=== PATIENT | male | born 1975 | race African-American/Black ===

== ENCOUNTER 2018-02-01 21:25 | Inpatient (IN) ==
[2018-02-02 00:13] LABS: Apearance,Urine CLEAR (Clear); Bilirubin,Urine Negative (Negative); Blood, Urine Small mg/dL (Negative); Glucose,Urine (UA) 150 mg/dL (Negative); Ketones,Urine Negative (Negative); Nitrite,Urine Negative (Negative); Protein,Urine 100 MG/DL; Urine Color Straw (Yellow); Urine Specific Gravity 1.006 (1.001-1.035); Urine Urobilinogen < 2.0 EU/DL (0.2-1.0); WBC,Urine 1 /HPF (0-6)
[2018-02-02 00:15] LABS: PT Patient Result 10.6 SECS
[2018-02-02] MEDS ORDERED: ASPIRIN 325 MG TABLET PO STA (00:17)
[2018-02-02] MEDS ORDERED: ASPIRIN 325 MG TABLET ONE (00:25)
[2018-02-02 00:37] LABS: Blood Urea Nitrogen 59 MG/DL (7-18); Calcium 8.6 MG/DL (8.5-10.1); Glucose 98 MG/DL (74-106); Potassium 4.8 MMOL/L (3.5-5.1); Sodium 136 MMOL/L (136-145); Troponin I Only 0.166 NG/ML (0.00-0.045)
[2018-02-02 00:40] LABS: Basophils % 0.3 % (0.0-0.8); Eosinophils # 0.1 10*3/uL (0.0-0.87); Eosinophils % 1.1 % (0.00-10.9); Hematocrit 27.2 VOL% (42.0-52.0); Hemoglobin 9.1 GM/DL (14.0-18.0); Immature Granulocytes % 0.4 %; Immature Granulocytes Absolute 0.05 #; Mean Corpuscular HGB Conc 33.5 GM/DL (32-36); Mean Corpuscular Hemoglobin 32 PG (27-34); Mean Corpuscular Volume 94.8 FL (87-102); Mean Platelet Volume 9.9 FL (9.6-12.0); Monocytes # 0.8 10*3/uL (0.11-0.8); Monocytes % 6.5 % (1.7-12.7); Neutrophils # 8.8 10*3/uL (1.4-7.4); Neutrophils % 74.7 % (38.7-73.9); Platelet Count 274 T/CUMM (130-400); Red Blood Count 2.87 MC/CUMM (3.8-5.5); Red Cell Distribution Width 18.7 % (9.3-17.3); White Blood Count 11.8 T/CUMM (4-12)
[2018-02-02] MEDS ORDERED: LABETALOL 20 MG/4 ML SYRINGE IV STA (01:28)
[2018-02-02] MEDS ORDERED: FUROSEMIDE 40 MG/4 ML VIAL IV STA (01:36)
[2018-02-02] MEDS ORDERED: FUROSEMIDE 40 MG/4 ML VIAL ONE (01:42)
[2018-02-02] MEDS ORDERED: LABETALOL 20 MG/4 ML SYRINGE IV ONE (01:42)
[2018-02-02] MEDS ORDERED: MORPHINE 4 MG/1 ML VIAL IV PRN (03:47)
[2018-02-02] MEDS ORDERED: ACETAMINOPHEN 325 MG TABLET PO PRN (03:47)
[2018-02-02] MEDS ORDERED: NITROGLYCERIN SL 0.4 MG TABLET SL PRN (03:54)
[2018-02-02 04:48] LABS: Risk Ratio 5.08; Thyroid Stimulating Hormone 1.68 uIU/ml (0.358-3.74); VLDL CHOLESTEROL 28.8 MG/DL
[2018-02-02] MEDS: ISOSORBIDE MONONITRATE 30 MG TABLET PO SCH (08:05)
[2018-02-02] MEDS: CLOPIDOGREL 75 MG TABLET PO SCH (08:05)
[2018-02-02] MEDS: PANTOPRAZOLE 40 MG TABLET PO SCH (08:05)
[2018-02-02] MEDS: CARVEDILOL 6.25 MG TABLET PO SCH (08:05)
[2018-02-02] MEDS: ASPIRIN EC 81 MG TABLET PO SCH (08:05)
[2018-02-02] MEDS ORDERED: LABETALOL 20 MG/4 ML SYRINGE IV PRN (15:59)
[2018-02-02] MEDS ORDERED: BENZONATATE 100 MG CAPSULE PO PRN (18:03)
[2018-02-02] MEDS: ONDANSETRON 4 MG/2 ML VIAL IV PRN (18:47)
[2018-02-03 04:25] LABS: Basophils % 0.4 % (0.0-0.8); Eosinophils # 0.1 10*3/uL (0.0-0.87); Eosinophils % 1.6 % (0.00-10.9); Hematocrit 24.4 VOL% (42.0-52.0); Hemoglobin 7.9 GM/DL (14.0-18.0); Immature Granulocytes % 0.4 %; Immature Granulocytes Absolute 0.03 #; Lymphocytes # 1.9 10*3/uL (1.4-4.0); Lymphocytes % 28.2 % (21.2-54.2); Mean Corpuscular HGB Conc 32.4 GM/DL (32-36); Mean Corpuscular Hemoglobin 31 PG (27-34); Mean Corpuscular Volume 96.1 FL (87-102); Mean Platelet Volume 9.8 FL (9.6-12.0); Monocytes # 0.5 10*3/uL (0.11-0.8); Monocytes % 7.6 % (1.7-12.7); Neutrophils # 4.2 10*3/uL (1.4-7.4); Neutrophils % 61.8 % (38.7-73.9); Platelet Count 230 T/CUMM (130-400); Red Blood Count 2.54 MC/CUMM (3.8-5.5); Red Cell Distribution Width 18.6 % (9.3-17.3); White Blood Count 6.8 T/CUMM (4-12)
[2018-02-03 04:56] LABS: Calcium 8.1 MG/DL (8.5-10.1)
[2018-02-03] MEDS: ASPIRIN EC 81 MG TABLET PO SCH (09:16)
[2018-02-03] MEDS: PANTOPRAZOLE 40 MG TABLET PO SCH (09:16)
[2018-02-03] MEDS: CLOPIDOGREL 75 MG TABLET PO SCH (09:16)
[2018-02-03] MEDS: ISOSORBIDE MONONITRATE 30 MG TABLET PO SCH (09:16)
[2018-02-03] MEDS: CARVEDILOL 6.25 MG TABLET PO SCH (09:16)
[2018-02-03] MEDS: ONDANSETRON 4 MG/2 ML VIAL IV PRN (17:33)
[2018-02-04 06:38] LABS: Basophils % 0.4 % (0.0-0.8); Eosinophils # 0.2 10*3/uL (0.0-0.87); Eosinophils % 2.1 % (0.00-10.9); Hematocrit 25.4 VOL% (42.0-52.0); Hemoglobin 8.3 GM/DL (14.0-18.0); Immature Granulocytes % 0.7 %; Immature Granulocytes Absolute 0.05 #; Lymphocytes # 1.8 10*3/uL (1.4-4.0); Lymphocytes % 23.3 % (21.2-54.2); Mean Corpuscular HGB Conc 32.7 GM/DL (32-36); Mean Corpuscular Hemoglobin 31 PG (27-34); Mean Corpuscular Volume 96.2 FL (87-102); Mean Platelet Volume 9.5 FL (9.6-12.0); Monocytes # 0.7 10*3/uL (0.11-0.8); Monocytes % 9.5 % (1.7-12.7); Neutrophils # 4.8 10*3/uL (1.4-7.4); Platelet Count 220 T/CUMM (130-400); Red Blood Count 2.64 MC/CUMM (3.8-5.5); Red Cell Distribution Width 18.6 % (9.3-17.3); White Blood Count 7.6 T/CUMM (4-12)
[2018-02-04 06:59] LABS: Calcium 8.2 MG/DL (8.5-10.1); Potassium 5.1 MMOL/L (3.5-5.1)
[2018-02-04] MEDS: PANTOPRAZOLE 40 MG TABLET PO SCH (09:30)
[2018-02-04] MEDS: ISOSORBIDE MONONITRATE 30 MG TABLET PO SCH (09:30)
[2018-02-04] MEDS: ASPIRIN EC 81 MG TABLET PO SCH (09:31)
[2018-02-04] MEDS: CARVEDILOL 6.25 MG TABLET PO SCH (09:31)
[2018-02-04] MEDS: CLOPIDOGREL 75 MG TABLET PO SCH (14:06)
[2018-02-04 16:10] VITALS: BP 137/84
[2018-02-04] MEDS ORDERED: DOCUSATE SODIUM 100 MG CAPSULE PO SCH (21:00)
== END 2018-02-04 16:05 | disposition home or self-care (01) | DRG 291 ==
LOC: N.ED 21:25 → N.EDINP 02-02 03:45 → N.ICU 02-02 04:30 → N.5E 02-03 18:14
PROVIDERS: ADMIT Internal Medicine; ATTEND Internal Medicine

== ENCOUNTER 2018-12-27 01:36 | Observation (INO) ==
[2018-12-27] MEDS ORDERED: MORPHINE 4 MG/1 ML VIAL IV STA (02:28)
[2018-12-27] MEDS ORDERED: ONDANSETRON 4 MG/2 ML VIAL IV STA (02:28)
[2018-12-27 02:34] LABS: Basophils % 0.4 % (0.0-0.8); Eosinophils # 0.1 10*3/uL (0.0-0.87); Eosinophils % 1.5 % (0.00-10.9); Hematocrit 29.7 VOL% (42.0-52.0); Hemoglobin 9.9 GM/DL (14.0-18.0); Immature Granulocytes % 0.5 %; Immature Granulocytes Absolute 0.04 #; Lymphocytes # 2.2 10*3/uL (1.4-4.0); Lymphocytes % 26.6 % (21.2-54.2); Mean Corpuscular HGB Conc 33.3 GM/DL (32-36); Mean Corpuscular Hemoglobin 31 PG (27-34); Mean Corpuscular Volume 93.1 FL (87-102); Mean Platelet Volume 9.8 FL (9.6-12.0); Monocytes # 0.6 10*3/uL (0.11-0.8); Monocytes % 7.8 % (1.7-12.7); Neutrophils # 5.1 10*3/uL (1.4-7.4); Neutrophils % 63.2 % (38.7-73.9); Platelet Count 240 T/CUMM (130-400); Red Blood Count 3.19 MC/CUMM (3.8-5.5); Red Cell Distribution Width 15.9 % (9.3-17.3); White Blood Count 8.1 T/CUMM (4-12)
[2018-12-27 02:48] LABS: Albumin 3.8 G/DL (3.4-5.0); Bilirubin,Total 0.4 MG/DL (0.2-1.0); Calcium 9.2 MG/DL (8.5-10.1); Osmolality,Calculated 281.1 MOS/KG (273-304); Potassium 4.1 MMOL/L (3.5-5.1); Total Protein 8.3 G/DL (6.4-8.3)
[2018-12-27] MEDS ORDERED: hydrALAZINE 20 MG/1 ML VIAL IV STA (03:39)
[2018-12-27] MEDS ORDERED: LABETALOL 20 MG/4 ML SYRINGE IV ONE (05:29)
[2018-12-27] MEDS ORDERED: LABETALOL 20 MG/4 ML SYRINGE IV STA (05:32)
[2018-12-27] MEDS ORDERED: guaiFENesin/DM ER 600-30 MG TABLET PO PRN (06:02)
[2018-12-27] MEDS ORDERED: ONDANSETRON 4 MG/2 ML VIAL IV PRN (06:02)
[2018-12-27] MEDS ORDERED: MAGNESIUM SULF RIDER 4 GM in PREMIX 1 EACH IV PRN (06:02)
[2018-12-27] MEDS ORDERED: ZALEPLON 5 MG CAPSULE PO PRN (06:02)
[2018-12-27] MEDS ORDERED: BISACODYL 5 MG TABLET PO PRN (06:02)
[2018-12-27] MEDS ORDERED: POTASSIUM CHLORIDE 20 MEQ TABLET PO PRN (06:02)
[2018-12-27] MEDS ORDERED: MORPHINE 4 MG/1 ML VIAL IV PRN (06:02)
[2018-12-27] MEDS ORDERED: MAGNESIUM SULF RIDER 2 GM in PREMIX 1 EACH IV PRN (06:02)
[2018-12-27] MEDS ORDERED: ACETAMINOPHEN 325 MG TABLET PO PRN (06:02)
[2018-12-27] MEDS ORDERED: NICOTINE 21 MG/24 HR PATCH TRANSDERM PRN (06:02)
[2018-12-27] MEDS ORDERED: diphenhydrAMINE CAP 25 MG CAPSULE PO PRN (06:02)
[2018-12-27 08:53] LABS: Risk Ratio 4.89; Thyroid Stimulating Hormone 1.94 uIU/ml (0.358-3.74); VLDL CHOLESTEROL 24.6 MG/DL
[2018-12-27] MEDS: PANTOPRAZOLE 40 MG TABLET PO SCH (09:15)
[2018-12-27] MEDS ORDERED: ALBUTEROL 2.5 MG/3 ML NEB RESP TX PRN (10:00)
[2018-12-27] MEDS ORDERED: CARVEDILOL 3.125 MG TABLET ONE (11:33)
[2018-12-27] MEDS ORDERED: ASPIRIN CHEW 81 MG TABLET PO ONE (11:34)
[2018-12-27] MEDS: ASPIRIN EC 81 MG TABLET PO SCH (11:57)
[2018-12-27] MEDS: hydrALAZINE 25 MG TABLET PO SCH ×2 (11:57→21:06)
[2018-12-27] MEDS: CARVEDILOL 6.25 MG TABLET PO SCH ×2 (11:58→21:06)
[2018-12-27] MEDS: ISOSORBIDE MONONITRATE 30 MG TABLET PO SCH (11:59)
[2018-12-27] MEDS: CLOPIDOGREL 75 MG TABLET PO SCH (11:59)
[2018-12-27] MEDS ORDERED: EPOETIN ALFA 2,000 UNIT/1 ML VIAL IV PRN (12:36)
[2018-12-28 05:42] LABS: Basophils % 0.5 % (0.0-0.8); Eosinophils # 0.1 10*3/uL (0.0-0.87); Eosinophils % 2.3 % (0.00-10.9); Hematocrit 27.6 VOL% (42.0-52.0); Hemoglobin 9.3 GM/DL (14.0-18.0); Immature Granulocytes % 0.4 %; Immature Granulocytes Absolute 0.02 #; Lymphocytes # 1.5 10*3/uL (1.4-4.0); Lymphocytes % 26.1 % (21.2-54.2); Mean Corpuscular HGB Conc 33.7 GM/DL (32-36); Mean Corpuscular Hemoglobin 32 PG (27-34); Mean Corpuscular Volume 94.2 FL (87-102); Monocytes # 0.5 10*3/uL (0.11-0.8); Monocytes % 8.8 % (1.7-12.7); Neutrophils # 3.5 10*3/uL (1.4-7.4); Neutrophils % 61.9 % (38.7-73.9); Platelet Count 204 T/CUMM (130-400); Red Blood Count 2.93 MC/CUMM (3.8-5.5); White Blood Count 5.7 T/CUMM (4-12)
[2018-12-28 05:44] LABS: Calcium 8.9 MG/DL (8.5-10.1); Potassium 3.9 MMOL/L (3.5-5.1)
[2018-12-28] MEDS: hydrALAZINE 25 MG TABLET PO SCH (14:44)
[2018-12-28] MEDS: CARVEDILOL 6.25 MG TABLET PO SCH (14:44)
[2018-12-28] MEDS: PANTOPRAZOLE 40 MG TABLET PO SCH (16:21)
[2018-12-28] MEDS: ASPIRIN EC 81 MG TABLET PO SCH (16:22)
[2018-12-28] MEDS: ISOSORBIDE MONONITRATE 30 MG TABLET PO SCH (16:22)
[2018-12-28] MEDS: CLOPIDOGREL 75 MG TABLET PO SCH (16:22)
[2018-12-28 16:46] VITALS: BP 148/85
== END 2018-12-28 16:46 | disposition home or self-care (01) ==
LOC: SUATTDRO → N.ED 01:36 → N.EDINP 01:36 → SUATTDRO 06:02 → N.EDINP 12:35 → N.5E 16:07
PROVIDERS: ADMIT Hospitalist; ATTEND Internal Medicine

== ENCOUNTER 2019-04-16 19:28 | Inpatient (IN) ==
[2019-04-16] MEDS ORDERED: LORazepam 2 MG/1 ML VIAL IV STA (20:04)
[2019-04-16] MEDS ORDERED: methylPREDNISolone SOD SUC 125 MG/2 ML VIAL IV STA (20:04)
[2019-04-16] MEDS ORDERED: ONDANSETRON 4 MG/2 ML VIAL IV STA (20:04)
[2019-04-16] MEDS ORDERED: FAMOTIDINE 20 MG/2 ML VIAL IV STA (20:04)
[2019-04-16] MEDS ORDERED: diphenhydrAMINE 50 MG/1 ML VIAL IV STA (20:04)
[2019-04-16] MEDS ORDERED: LEVOFLOXACIN INJ 750 MG in PREMIX 1 EACH IV STA (20:10)
[2019-04-16] MEDS: ALBUTEROL 2.5 MG/3 ML NEB RESP TX SCH ×3 (20:14→21:34)
[2019-04-16 21:22] LABS: Basophils % 0.1 % (0.0-0.8); Eosinophils # 0.1 10*3/uL (0.0-0.87); Eosinophils % 1.1 % (0.00-10.9); Hematocrit 38.9 VOL% (42.0-52.0); Hemoglobin 12.5 GM/DL (14.0-18.0); Immature Granulocytes % 0.5 %; Immature Granulocytes Absolute 0.05 #; Lymphocytes # 0.5 10*3/uL (1.4-4.0); Lymphocytes % 4.8 % (21.2-54.2); Mean Corpuscular HGB Conc 32.1 GM/DL (32-36); Mean Corpuscular Volume 93.7 FL (87-102); Mean Platelet Volume 9.5 FL (9.6-12.0); Monocytes % 1.5 % (1.7-12.7); Platelet Count 183 T/CUMM (130-400); Red Blood Count 4.15 MC/CUMM (3.8-5.5); Red Cell Distribution Width 15.9 % (9.3-17.3); White Blood Count 9.8 T/CUMM (4-12)
[2019-04-16 21:30] LABS: PT Patient Result 10.8 SECS
[2019-04-16 21:41] LABS: Alanine Aminotransferase 17 U/L (16-61); Alkaline Phosphatase 62 U/L (45-117); Aspartate Amino Transferase 18 U/L (0-37); Blood Urea Nitrogen 28 MG/DL (7-18); Calcium 9.2 MG/DL (8.5-10.1); Glucose 97 MG/DL (74-106); Osmolality,Calculated 275.1 MOS/KG (273-304); Total Protein 9.5 G/DL (6.4-8.3)
[2019-04-16] MEDS ORDERED: VANCOMYCIN INJ 1,000 MG in SODIUM CHLORIDE 0.9% 250 ML IV STA (22:10)
[2019-04-16] MEDS ORDERED: VANCOMYCIN INJ 1,250 MG in SODIUM CHLORIDE 0.9% 250 ML IV STA (22:20)
[2019-04-16] MEDS ORDERED: ALBUTEROL 2.5 MG/3 ML NEB RESP TX PRN (22:34)
[2019-04-16] MEDS ORDERED: NITROGLYCERIN SL 0.4 MG TABLET SL PRN (22:34)
[2019-04-16] MEDS ORDERED: ASPIRIN EC 81 MG TABLET PO PRN (22:34)
[2019-04-16] MEDS ORDERED: CALCITRIOL 0.25 MCG CAPSULE PO SCH (23:00)
[2019-04-16 23:01] LABS: Band Neutrophils 3 % (0-10); Eosinophils 1 % (0-10); Lymphocytes 3 % (20-55); Macrocytosis Slight; Platelet Estimate Normal; Segmented Neutrophils 92 % (50-85); Total Cells Counted 100
[2019-04-16 23:02] LABS: Anisocytosis 1+; Polychromasia Few
[2019-04-17] MEDS ORDERED: ONDANSETRON 4 MG/2 ML VIAL IV PRN (02:13)
[2019-04-17] MEDS ORDERED: VANCOMYCIN INJ 1,250 MG in SODIUM CHLORIDE 0.9% 250 ML IV PRN (02:13)
[2019-04-17] MEDS: ATORVASTATIN 40 MG TABLET PO SCH ×2 (03:27→20:47)
[2019-04-17] MEDS: CLINDAMYCIN 300 MG CAPSULE PO SCH ×3 (03:27→17:22)
[2019-04-17] MEDS: CARVEDILOL 12.5 MG TABLET PO SCH ×3 (03:31→18:05)
[2019-04-17 05:48] LABS: Basophils # 0.1 10*3/uL (0.0-0.2); Basophils % 0.2 % (0.0-0.8); Hematocrit 34.4 VOL% (42.0-52.0); Hemoglobin 11.3 GM/DL (14.0-18.0); Immature Granulocytes % 0.9 %; Lymphocytes # 0.2 10*3/uL (1.4-4.0); Mean Corpuscular HGB Conc 32.8 GM/DL (32-36); Mean Platelet Volume 10.2 FL (9.6-12.0); Monocytes % 0.8 % (1.7-12.7); Neutrophils % 97.1 % (38.7-73.9); Platelet Count 174 T/CUMM (130-400); Red Blood Count 3.62 MC/CUMM (3.8-5.5); Red Cell Distribution Width 15.7 % (9.3-17.3); White Blood Count 21.7 T/CUMM (4-12)
[2019-04-17 06:05] LABS: Calcium 9.2 MG/DL (8.5-10.1); Osmolality,Calculated 279.2 MOS/KG (273-304)
[2019-04-17 06:25] LABS: Band Neutrophils 7 % (0-10); Lymphocytes 1 % (20-55); Segmented Neutrophils 91 % (50-85); Total Cells Counted 100
[2019-04-17 06:26] LABS: Platelet Estimate Normal
[2019-04-17] MEDS ORDERED: SODIUM CHLORIDE 0.9% 500 ML IV ONE (07:59)
[2019-04-17] MEDS ORDERED: SODIUM POLYSTYRENE SULFATE 15 GM/60 ML BOTTLE PO STA (08:00)
[2019-04-17] MEDS: SEVELAMER CARBONATE 800 MG TABLET PO SCH ×3 (10:25→17:18)
[2019-04-17] MEDS: CLOPIDOGREL 75 MG TABLET PO SCH (10:25)
[2019-04-17] MEDS: HEPARIN 5,000 UNIT/1 ML VIAL SUBCUT SCH ×2 (17:20→20:47)
[2019-04-17 19:34] LABS: Apearance,Urine CLEAR (Clear); Bilirubin,Urine Negative (Negative); Blood, Urine Small mg/dL (Negative); Glucose,Urine (UA) 150 mg/dL (Negative); Ketones,Urine Negative (Negative); Nitrite,Urine Negative (Negative); Protein,Urine 100 MG/DL; RBC,Urine 2 /HPF (0-4); Urine Color Straw (Yellow); Urine Specific Gravity 1.005 (1.001-1.035); Urine Urobilinogen < 2.0 EU/DL (0.2-1.0); WBC,Urine 1 /HPF (0-6)
[2019-04-17] MEDS ORDERED: diphenhydrAMINE 50 MG/1 ML VIAL IV ONE (21:27)
[2019-04-18 04:57] LABS: Basophils % 0.1 % (0.0-0.8); Eosinophils # 0.4 10*3/uL (0.0-0.87); Eosinophils % 2.5 % (0.00-10.9); Hematocrit 31.9 VOL% (42.0-52.0); Hemoglobin 10.3 GM/DL (14.0-18.0); Immature Granulocytes % 0.7 %; Lymphocytes # 0.4 10*3/uL (1.4-4.0); Lymphocytes % 2.9 % (21.2-54.2); Mean Corpuscular HGB Conc 32.3 GM/DL (32-36); Mean Corpuscular Volume 93.5 FL (87-102); Mean Platelet Volume 10.4 FL (9.6-12.0); Monocytes % 1.6 % (1.7-12.7); Neutrophils % 92.2 % (38.7-73.9); Platelet Count 152 T/CUMM (130-400); Red Blood Count 3.41 MC/CUMM (3.8-5.5); Red Cell Distribution Width 15.8 % (9.3-17.3); White Blood Count 14.5 T/CUMM (4-12)
[2019-04-18] MEDS: ACETAMINOPHEN 325 MG TABLET PO PRN ×3 (05:16→21:27)
[2019-04-18] MEDS: HEPARIN 5,000 UNIT/1 ML VIAL SUBCUT SCH ×4 (05:16→21:27)
[2019-04-18 05:18] LABS: Calcium 8.9 MG/DL (8.5-10.1); Osmolality,Calculated 282.5 MOS/KG (273-304)
[2019-04-18 05:27] LABS: Anisocytosis 1+; Band Neutrophils 1 % (0-10); Eosinophils 2 % (0-10); Lymphocytes 2 % (20-55); Platelet Estimate Adequate; Segmented Neutrophils 95 % (50-85); Total Cells Counted 100
[2019-04-18] MEDS: CLOPIDOGREL 75 MG TABLET PO SCH (08:25)
[2019-04-18] MEDS: SEVELAMER CARBONATE 800 MG TABLET PO SCH ×3 (08:26→16:47)
[2019-04-18] MEDS: CARVEDILOL 12.5 MG TABLET PO SCH ×2 (08:26→16:47)
[2019-04-18] MEDS ORDERED: SODIUM POLYSTYRENE SULFATE 15 GM/60 ML BOTTLE PO STA (10:49)
[2019-04-18] MEDS: diphenhydrAMINE 50 MG/1 ML VIAL IV SCH ×3 (11:29→23:48)
[2019-04-18] MEDS: LEVOFLOXACIN INJ 500 MG in PREMIX 1 EACH IV SCH (13:04)
[2019-04-18] MEDS ORDERED: ETELCALCETIDE IV SCH (14:00)
[2019-04-18] MEDS: ATORVASTATIN 40 MG TABLET PO SCH (21:27)
[2019-04-19] MEDS: diphenhydrAMINE 50 MG/1 ML VIAL IV SCH ×3 (05:14→18:42)
[2019-04-19] MEDS: HEPARIN 5,000 UNIT/1 ML VIAL SUBCUT SCH ×3 (05:14→21:14)
[2019-04-19 05:48] LABS: Eosinophils # 0.5 10*3/uL (0.0-0.87); Eosinophils % 5.2 % (0.00-10.9); Hemoglobin 10.1 GM/DL (14.0-18.0); Immature Granulocytes % 0.6 %; Immature Granulocytes Absolute 0.06 #; Lymphocytes # 0.5 10*3/uL (1.4-4.0); Lymphocytes % 4.7 % (21.2-54.2); Mean Corpuscular HGB Conc 33.7 GM/DL (32-36); Mean Platelet Volume 10.8 FL (9.6-12.0); Monocytes % 2.1 % (1.7-12.7); Neutrophils % 87.4 % (38.7-73.9); Platelet Count 148 T/CUMM (130-400); Red Blood Count 3.26 MC/CUMM (3.8-5.5); Red Cell Distribution Width 15.8 % (9.3-17.3); White Blood Count 9.9 T/CUMM (4-12)
[2019-04-19 06:04] LABS: Calcium 9.5 MG/DL (8.5-10.1); Osmolality,Calculated 288.8 MOS/KG (273-304)
[2019-04-19 06:16] LABS: Anisocytosis 1+; Band Neutrophils 2 % (0-10); Eosinophils 6 % (0-10); Lymphocytes 4 % (20-55); Segmented Neutrophils 87 % (50-85); Total Cells Counted 100
[2019-04-19 06:17] LABS: Platelet Estimate Adequate
[2019-04-19] MEDS: ACETAMINOPHEN 325 MG TABLET PO PRN ×2 (06:32→15:22)
[2019-04-19] MEDS: CARVEDILOL 12.5 MG TABLET PO SCH ×2 (08:02→18:27)
[2019-04-19] MEDS: CLOPIDOGREL 75 MG TABLET PO SCH (08:03)
[2019-04-19] MEDS: SEVELAMER CARBONATE 800 MG TABLET PO SCH ×3 (08:03→17:25)
[2019-04-19] MEDS ORDERED: VANCOMYCIN INJ 500 MG in SODIUM CHLORIDE 0.9% 100 ML IV PRN (12:49)
[2019-04-19] MEDS ORDERED: methylPREDNISolone SOD SUC 125 MG/2 ML VIAL IV ONE (17:00)
[2019-04-19] MEDS ORDERED: VANCOMYCIN INJ 500 MG in SODIUM CHLORIDE 0.9% 100 ML IV ONE (17:00)
[2019-04-19] MEDS ORDERED: IBUPROFEN 800 MG TABLET PO ONE (17:11)
[2019-04-19] MEDS: CALCITRIOL 0.25 MCG CAPSULE PO SCH (21:14)
[2019-04-19] MEDS: ATORVASTATIN 40 MG TABLET PO SCH (21:14)
[2019-04-20 05:05] LABS: Basophils % 0.1 % (0.0-0.8); Eosinophils % 0.1 % (0.00-10.9); Hematocrit 29.4 VOL% (42.0-52.0); Hemoglobin 9.7 GM/DL (14.0-18.0); Immature Granulocytes % 0.5 %; Immature Granulocytes Absolute 0.04 #; Lymphocytes # 0.5 10*3/uL (1.4-4.0); Lymphocytes % 5.7 % (21.2-54.2); Mean Platelet Volume 10.7 FL (9.6-12.0); Monocytes % 1.3 % (1.7-12.7); Neutrophils % 92.3 % (38.7-73.9); Platelet Count 123 T/CUMM (130-400); Red Blood Count 3.16 MC/CUMM (3.8-5.5); Red Cell Distribution Width 15.7 % (9.3-17.3); White Blood Count 7.9 T/CUMM (4-12)
[2019-04-20 05:32] LABS: Band Neutrophils 2 % (0-10); Hypochromasia 1+; Lymphocytes 5 % (20-55); Platelet Estimate Adequate; Segmented Neutrophils 92 % (50-85); Total Cells Counted 100
[2019-04-20] MEDS: HEPARIN 5,000 UNIT/1 ML VIAL SUBCUT SCH ×3 (05:36→21:37)
[2019-04-20 05:42] LABS: Calcium 8.7 MG/DL (8.5-10.1); Osmolality,Calculated 281.7 MOS/KG (273-304)
[2019-04-20] MEDS: SEVELAMER CARBONATE 800 MG TABLET PO SCH ×3 (08:49→16:44)
[2019-04-20] MEDS: CARVEDILOL 12.5 MG TABLET PO SCH ×2 (08:50→16:43)
[2019-04-20] MEDS ORDERED: diphenhydrAMINE 50 MG/1 ML VIAL IV ONE (14:18)
[2019-04-20] MEDS: LEVOFLOXACIN INJ 500 MG in PREMIX 1 EACH IV SCH (19:10)
[2019-04-20] MEDS: ATORVASTATIN 40 MG TABLET PO SCH (21:36)
[2019-04-21] MEDS: HEPARIN 5,000 UNIT/1 ML VIAL SUBCUT SCH ×3 (04:33→22:08)
[2019-04-21 04:52] LABS: Basophils % 0.2 % (0.0-0.8); Eosinophils # 0.2 10*3/uL (0.0-0.87); Eosinophils % 1.9 % (0.00-10.9); Hematocrit 29.2 VOL% (42.0-52.0); Hemoglobin 9.8 GM/DL (14.0-18.0); Immature Granulocytes % 0.6 %; Immature Granulocytes Absolute 0.07 #; Lymphocytes # 1.2 10*3/uL (1.4-4.0); Lymphocytes % 10.7 % (21.2-54.2); Mean Corpuscular HGB Conc 33.6 GM/DL (32-36); Mean Corpuscular Volume 92.1 FL (87-102); Mean Platelet Volume 10.9 FL (9.6-12.0); Monocytes % 7.1 % (1.7-12.7); Neutrophils % 79.5 % (38.7-73.9); Platelet Count 152 T/CUMM (130-400); Red Blood Count 3.17 MC/CUMM (3.8-5.5); Red Cell Distribution Width 15.7 % (9.3-17.3); White Blood Count 11.2 T/CUMM (4-12)
[2019-04-21 05:19] LABS: Calcium 9.1 MG/DL (8.5-10.1); Osmolality,Calculated 291.2 MOS/KG (273-304)
[2019-04-21] MEDS: SEVELAMER CARBONATE 800 MG TABLET PO SCH ×3 (10:25→17:28)
[2019-04-21] MEDS: CARVEDILOL 12.5 MG TABLET PO SCH ×2 (12:46→17:28)
[2019-04-21] MEDS: CALCITRIOL 0.25 MCG CAPSULE PO SCH (12:46)
[2019-04-21] MEDS ORDERED: LEVOFLOXACIN INJ 250 MG in PREMIX 1 EACH IV SCH (15:00)
[2019-04-21] MEDS: diphenhydrAMINE 50 MG/1 ML VIAL IV SCH (16:13)
[2019-04-21] MEDS: ATORVASTATIN 40 MG TABLET PO SCH (22:08)
[2019-04-21] MEDS: CHLORHEXIDINE 0.12% ORAL RINSE 60 ML BOTTLE SWISH/SPIT SCH (22:08)
[2019-04-22 04:35] LABS: Basophils % 0.1 % (0.0-0.8); Eosinophils # 0.6 10*3/uL (0.0-0.87); Eosinophils % 7.6 % (0.00-10.9); Hemoglobin 9.7 GM/DL (14.0-18.0); Immature Granulocytes % 1.3 %; Lymphocytes # 2.1 10*3/uL (1.4-4.0); Lymphocytes % 26.5 % (21.2-54.2); Mean Corpuscular HGB Conc 33.4 GM/DL (32-36); Mean Corpuscular Volume 91.8 FL (87-102); Mean Platelet Volume 10.3 FL (9.6-12.0); Monocytes % 10.3 % (1.7-12.7); Neutrophils % 54.2 % (38.7-73.9); Platelet Count 165 T/CUMM (130-400); Red Blood Count 3.16 MC/CUMM (3.8-5.5); Red Cell Distribution Width 15.9 % (9.3-17.3); White Blood Count 7.7 T/CUMM (4-12)
[2019-04-22 04:45] LABS: Calcium 8.8 MG/DL (8.5-10.1)
[2019-04-22 05:21] LABS: Band Neutrophils 5 % (0-10); Eosinophils 9 % (0-10); Hypochromasia 2+; Lymphocytes 28 % (20-55); Platelet Estimate Normal; Segmented Neutrophils 45 % (50-85); Total Cells Counted 100
[2019-04-22] MEDS: CHLORHEXIDINE 0.12% ORAL RINSE 60 ML BOTTLE SWISH/SPIT SCH (08:00)
[2019-04-22] MEDS: SEVELAMER CARBONATE 800 MG TABLET PO SCH ×3 (08:00→16:22)
[2019-04-22] MEDS: CARVEDILOL 12.5 MG TABLET PO SCH ×3 (08:00→16:21)
[2019-04-22] MEDS ORDERED: LIDOCAINE 1%/EPI INJ 20 ML VIAL ONE (13:18)
[2019-04-22] MEDS ORDERED: CHLORHEXIDINE 0.12% ORAL RINSE 60 ML BOTTLE SWISH/SPIT ONE (13:18)
[2019-04-22] MEDS ORDERED: SUGAMMADEX 200 MG/2 ML VIAL IV ONE (14:15)
[2019-04-22] MEDS ORDERED: PROPOFOL 200 MG/20 ML VIAL IV ONE (14:48)
[2019-04-22] MEDS ORDERED: fentaNYL 100 MCG/2 ML VIAL ONE (14:48)
[2019-04-22] MEDS ORDERED: DESFLURANE 1 UNIT/15 MINUTE INH ONE (14:48)
[2019-04-22] MEDS ORDERED: DEXAMETHASONE 4 MG/1 ML VIAL ONE (14:48)
[2019-04-22] MEDS ORDERED: ONDANSETRON 4 MG/2 ML VIAL ONE (14:48)
[2019-04-22] MEDS ORDERED: ROCURONIUM 100 MG/10 ML VIAL IV ONE (14:48)
[2019-04-22 15:29] VITALS: BP 146/80
[2019-04-23] MEDS ORDERED: EPOETIN BETA METHOXY PEG IV SCH (14:00)
== END 2019-04-22 17:19 | disposition home or self-care (01) | DRG 157 ==
LOC: N.ED 19:28 → N.EDINP 19:28 → SUATTDRO 22:14 → N.5E 04-17 02:15 → SUATTDRO 04-18 10:15
PROVIDERS: ADMIT Internal Medicine; ATTEND Internal Medicine Cardiovascular Disease

== ENCOUNTER 2019-07-02 22:54 | Observation (INO) ==
[2019-07-02] MEDS ORDERED: NITROGLYCERIN SL 0.4 MG TABLET SL ONE (23:31)
[2019-07-02] MEDS ORDERED: NITROGLYCERIN SL 0.4 MG TABLET SL STA (23:40)
[2019-07-02 23:49] LABS: Basophils % 0.4 % (0.0-0.8); Eosinophils # 0.1 10*3/uL (0.0-0.87); Eosinophils % 1.8 % (0.00-10.9); Immature Granulocytes % 0.3 %; Immature Granulocytes Absolute 0.02 #; Lymphocytes # 1.9 10*3/uL (1.4-4.0); Mean Corpuscular HGB Conc 33.3 GM/DL (32-36); Mean Corpuscular Volume 95.8 FL (87-102); Mean Platelet Volume 9.8 FL (9.6-12.0); Monocytes % 7.7 % (1.7-12.7); Neutrophils % 61.8 % (38.7-73.9); Platelet Count 181 T/CUMM (130-400); Red Blood Count 3.13 MC/CUMM (3.8-5.5); White Blood Count 6.7 T/CUMM (4-12)
[2019-07-02 23:58] LABS: PT Patient Result 10.7 SECS (9.6-12.2); Partial Thromboplastin Time 27.6 SECS (20.8-36.0)
[2019-07-03 00:06] LABS: Albumin 3.6 G/DL (3.4-5.0); Bilirubin,Total 0.4 MG/DL (0.2-1.0); Calcium 9.2 MG/DL (8.5-10.1); Osmolality,Calculated 281.4 MOS/KG (273-304); Total Protein 7.9 G/DL (6.4-8.3)
[2019-07-03] MEDS ORDERED: NITROGLYCERIN SL 0.4 MG TABLET SL STA (01:07)
[2019-07-03] MEDS ORDERED: MORPHINE 4 MG/1 ML VIAL IV STA (01:07)
[2019-07-03] MEDS ORDERED: ONDANSETRON 4 MG/2 ML VIAL IV ONE (01:07)
[2019-07-03] MEDS ORDERED: ONDANSETRON 4 MG/2 ML VIAL IV PRN (02:12)
[2019-07-03] MEDS ORDERED: NICOTINE 21 MG/24 HR PATCH TRANSDERM PRN (02:12)
[2019-07-03] MEDS ORDERED: ACETAMINOPHEN 325 MG TABLET PO PRN (02:12)
[2019-07-03] MEDS ORDERED: NITROGLYCERIN SL 0.4 MG TABLET SL PRN ×2 (02:12→07:14)
[2019-07-03 02:49] LABS: Risk Ratio 4.25; VLDL CHOLESTEROL 23.2 MG/DL
[2019-07-03] MEDS ORDERED: ASPIRIN EC 81 MG TABLET PO PRN (07:14)
[2019-07-03] MEDS ORDERED: ETELCALCETIDE IV SCH (07:15)
[2019-07-03] MEDS ORDERED: EPOETIN BETA METHOXY PEG IV SCH (07:15)
[2019-07-03] MEDS: ASPIRIN EC 325 MG TABLET PO SCH (08:53)
[2019-07-03] MEDS: SEVELAMER CARBONATE 800 MG TABLET PO SCH ×3 (08:53→17:45)
[2019-07-03] MEDS: CLOPIDOGREL 75 MG TABLET PO SCH (08:53)
[2019-07-03] MEDS: PANTOPRAZOLE 40 MG TABLET PO SCH (08:53)
[2019-07-03] MEDS ORDERED: CARVEDILOL 12.5 MG TABLET PO SCH (09:00)
[2019-07-03 09:43] LABS: Apearance,Urine CLEAR (Clear); Bilirubin,Urine Negative (Negative); Blood, Urine Large mg/dL (Negative); Glucose,Urine (UA) 150 mg/dL (Negative); Ketones,Urine Negative (Negative); Mucus,Urine Occasional /LPF (Occasional); Nitrite,Urine Negative (Negative); Protein,Urine 100 MG/DL; RBC,Urine 99 /HPF (0-4); Urine Color Colorless (Yellow); Urine Specific Gravity 1.005 (1.001-1.035); Urine Urobilinogen < 2.0 EU/DL (0.2-1.0); WBC,Urine 1 /HPF (0-6)
[2019-07-03] MEDS ORDERED: CARVEDILOL 12.5 MG TABLET PO ONE (16:54)
[2019-07-03] MEDS ORDERED: ATORVASTATIN 40 MG TABLET PO SCH (21:00)
[2019-07-03] MEDS: CARVEDILOL 25 MG TABLET PO SCH (21:24)
[2019-07-03] MEDS: MORPHINE 4 MG/1 ML VIAL IV PRN (21:25)
[2019-07-04] MEDS: MORPHINE 4 MG/1 ML VIAL IV PRN (00:58)
[2019-07-04] MEDS: SEVELAMER CARBONATE 800 MG TABLET PO SCH (07:58)
[2019-07-04] MEDS: CARVEDILOL 25 MG TABLET PO SCH (07:59)
[2019-07-04] MEDS: PANTOPRAZOLE 40 MG TABLET PO SCH (07:59)
[2019-07-04] MEDS: ASPIRIN EC 325 MG TABLET PO SCH (07:59)
[2019-07-04] MEDS: CLOPIDOGREL 75 MG TABLET PO SCH (07:59)
[2019-07-04 10:47] VITALS: BP 148/89
[2019-07-05] MEDS ORDERED: CALCITRIOL 0.25 MCG CAPSULE PO SCH (07:14)
== END 2019-07-04 11:03 | disposition home or self-care (01) ==
LOC: N.EDINP 22:54 → N.ED 22:54 → SUATTDRO 07-03 02:12 → N.TELEN 07-03 02:37
PROVIDERS: ATTEND Internal Medicine

== ENCOUNTER 2019-08-10 21:17 | Observation (INO) ==
[2019-08-10] MEDS ORDERED: ASPIRIN 325 MG TABLET PO STA (21:37)
[2019-08-10] MEDS ORDERED: NITROGLYCERIN 2% OINT 1 INCH/GM PACK TOP STA (21:37)
[2019-08-10] MEDS ORDERED: ONDANSETRON 4 MG/2 ML VIAL IV STA (21:37)
[2019-08-10 21:49] LABS: Basophils # 0.1 10*3/uL (0.0-0.2); Basophils % 0.6 % (0.0-0.8); Eosinophils # 0.2 10*3/uL (0.0-0.87); Eosinophils % 1.9 % (0.00-10.9); Hematocrit 29.9 VOL% (42.0-52.0); Hemoglobin 10.1 GM/DL (14.0-18.0); Immature Granulocytes % 0.4 %; Immature Granulocytes Absolute 0.04 #; Lymphocytes # 2.4 10*3/uL (1.4-4.0); Lymphocytes % 26.5 % (21.2-54.2); Mean Corpuscular HGB Conc 33.8 GM/DL (32-36); Mean Corpuscular Volume 95.8 FL (87-102); Mean Platelet Volume 9.6 FL (9.6-12.0); Monocytes % 7.8 % (1.7-12.7); Neutrophils % 62.8 % (38.7-73.9); Platelet Count 198 T/CUMM (130-400); Red Blood Count 3.12 MC/CUMM (3.8-5.5); Red Cell Distribution Width 16.1 % (9.3-17.3); White Blood Count 8.9 T/CUMM (4-12)
[2019-08-10 22:01] LABS: PT Patient Result 11.2 SECS (9.6-12.2); Partial Thromboplastin Time 27.3 SECS (20.8-36.0)
[2019-08-10 22:08] LABS: Alanine Aminotransferase 23 U/L (16-61); Albumin 3.8 G/DL (3.4-5.0); Alkaline Phosphatase 62 U/L (45-117); Aspartate Amino Transferase 25 U/L (0-37); Blood Urea Nitrogen 44 MG/DL (7-18); Calcium 10.1 MG/DL (8.5-10.1); Estimated Glom Filtration Rate 6 ML/MIN; Glucose 115 MG/DL (74-106); Osmolality,Calculated 286.7 MOS/KG (273-304)
[2019-08-10 22:09] LABS: Troponin I 0.078 NG/ML (0.00-0.045)
[2019-08-10] MEDS ORDERED: ONDANSETRON 4 MG/2 ML VIAL IV PRN (22:53)
[2019-08-10] MEDS ORDERED: ACETAMINOPHEN 325 MG TABLET PO PRN (22:53)
[2019-08-10] MEDS ORDERED: DEXTROSE 50% 25 GM/50 ML VIAL IV PRN (23:00)
[2019-08-10] MEDS ORDERED: GLUCAGON 1 MG VIAL IM PRN (23:00)
[2019-08-10] MEDS ORDERED: NITROGLYCERIN SL 0.4 MG TABLET SL PRN (23:02)
[2019-08-10] MEDS ORDERED: ASPIRIN EC 81 MG TABLET PO PRN (23:02)
[2019-08-11] MEDS: HEPARIN 5,000 UNIT/1 ML VIAL SUBCUT SCH ×3 (00:59→17:00)
[2019-08-11 06:07] LABS: Basophils % 0.4 % (0.0-0.8); Eosinophils # 0.2 10*3/uL (0.0-0.87); Eosinophils % 2.4 % (0.00-10.9); Hematocrit 26.9 VOL% (42.0-52.0); Immature Granulocytes % 0.3 %; Immature Granulocytes Absolute 0.02 #; Lymphocytes # 2.2 10*3/uL (1.4-4.0); Lymphocytes % 32.2 % (21.2-54.2); Mean Corpuscular HGB Conc 33.5 GM/DL (32-36); Mean Corpuscular Volume 95.7 FL (87-102); Mean Platelet Volume 10.1 FL (9.6-12.0); Monocytes % 9.6 % (1.7-12.7); Neutrophils % 55.1 % (38.7-73.9); Platelet Count 172 T/CUMM (130-400); Red Blood Count 2.81 MC/CUMM (3.8-5.5)
[2019-08-11 06:27] LABS: Albumin 3.4 G/DL (3.4-5.0); Bilirubin,Total 0.4 MG/DL (0.2-1.0); Calcium 9.9 MG/DL (8.5-10.1); Osmolality,Calculated 291.4 MOS/KG (273-304); Total Protein 6.8 G/DL (6.4-8.3)
[2019-08-11 06:30] LABS: Troponin I 0.097 NG/ML (0.00-0.045)
[2019-08-11] MEDS: INSULIN LISPRO 100 UNIT/ML SUBCUT SCH ×4 (08:26→20:59)
[2019-08-11] MEDS: ISOSORBIDE MONONITRATE 30 MG TABLET PO SCH (08:33)
[2019-08-11] MEDS: CARVEDILOL 25 MG TABLET PO SCH ×2 (08:33→18:14)
[2019-08-11] MEDS: SEVELAMER CARBONATE 800 MG TABLET PO SCH ×3 (08:33→18:14)
[2019-08-11] MEDS: PANTOPRAZOLE 40 MG TABLET PO SCH (08:33)
[2019-08-11] MEDS: CLOPIDOGREL 75 MG TABLET PO SCH (08:33)
[2019-08-11] MEDS ORDERED: amLODIPine 5 MG TABLET PO SCH (09:00)
[2019-08-11] MEDS ORDERED: DILTIAZEM CD 120 MG CAPSULE PO SCH (09:00)
[2019-08-11 12:17] LABS: Troponin I 0.086 NG/ML (0.00-0.045)
[2019-08-11] MEDS ORDERED: EPOETIN ALFA 10,000 UNIT/1 ML VIAL IV PRN (12:56)
[2019-08-11 14:35] LABS: Troponin I 0.074 NG/ML (0.00-0.045)
[2019-08-11 18:55] LABS: Troponin I 0.061 NG/ML (0.00-0.045)
[2019-08-11] MEDS ORDERED: DILTIAZEM CD 240 MG CAPSULE PO SCH (20:19)
[2019-08-11 20:36] LABS: Troponin I 0.057 NG/ML (0.00-0.045)
[2019-08-11] MEDS ORDERED: ATORVASTATIN 40 MG TABLET PO SCH (21:00)
[2019-08-11 23:39] LABS: Troponin I 0.051 NG/ML (0.00-0.045)
[2019-08-12] MEDS: HEPARIN 5,000 UNIT/1 ML VIAL SUBCUT SCH ×2 (00:43→09:11)
[2019-08-12 05:45] LABS: Basophils # 0.1 10*3/uL (0.0-0.2); Basophils % 0.7 % (0.0-0.8); Eosinophils # 0.3 10*3/uL (0.0-0.87); Eosinophils % 2.9 % (0.00-10.9); Hematocrit 30.9 VOL% (42.0-52.0); Hemoglobin 10.4 GM/DL (14.0-18.0); Immature Granulocytes % 0.3 %; Immature Granulocytes Absolute 0.03 #; Lymphocytes # 2.4 10*3/uL (1.4-4.0); Lymphocytes % 27.5 % (21.2-54.2); Mean Corpuscular HGB Conc 33.7 GM/DL (32-36); Mean Corpuscular Volume 94.8 FL (87-102); Mean Platelet Volume 9.5 FL (9.6-12.0); Monocytes % 9.5 % (1.7-12.7); Neutrophils % 59.1 % (38.7-73.9); Platelet Count 212 T/CUMM (130-400); Red Blood Count 3.26 MC/CUMM (3.8-5.5); Red Cell Distribution Width 16.1 % (9.3-17.3); White Blood Count 8.7 T/CUMM (4-12)
[2019-08-12 06:08] LABS: Osmolality,Calculated 272.2 MOS/KG (273-304)
[2019-08-12 07:22] VITALS: BP 144/96
[2019-08-12] MEDS: CARVEDILOL 25 MG TABLET PO SCH (09:09)
[2019-08-12] MEDS: CLOPIDOGREL 75 MG TABLET PO SCH (09:09)
[2019-08-12] MEDS: SEVELAMER CARBONATE 800 MG TABLET PO SCH (09:10)
[2019-08-12] MEDS: PANTOPRAZOLE 40 MG TABLET PO SCH (09:10)
[2019-08-12] MEDS: ISOSORBIDE MONONITRATE 30 MG TABLET PO SCH (09:11)
[2019-08-12] MEDS: INSULIN LISPRO 100 UNIT/ML SUBCUT SCH (09:12)
== END 2019-08-12 10:09 | disposition home or self-care (01) ==
LOC: N.EDINP 21:17 → N.ED 21:17 → SUATTDRO 22:53 → N.5E 23:37
PROVIDERS: ADMIT Internal Medicine; ATTEND Hospitalist

== ENCOUNTER 2020-02-13 14:22 | Inpatient (IN) ==
[2020-02-13 15:21] LABS: Basophils % 0.2 % (0.0-0.8); Eosinophils % 0.2 % (0.00-10.9); Hematocrit 31.9 VOL% (42.0-52.0); Hemoglobin 10.9 GM/DL (14.0-18.0); Immature Granulocytes % 0.6 %; Immature Granulocytes Absolute 0.12 #; Lymphocytes % 9.9 % (21.2-54.2); Mean Corpuscular HGB Conc 34.2 GM/DL (32-36); Mean Corpuscular Volume 92.7 FL (87-102); Mean Platelet Volume 9.4 FL (9.6-12.0); Monocytes % 10.4 % (1.7-12.7); Neutrophils % 78.7 % (38.7-73.9); Platelet Count 216 T/CUMM (130-400); Red Blood Count 3.44 MC/CUMM (3.8-5.5); Red Cell Distribution Width 15.8 % (9.3-17.3); White Blood Count 19.9 T/CUMM (4-12)
[2020-02-13 15:43] LABS: Albumin 3.8 G/DL (3.4-5.0); Bilirubin,Total 0.6 MG/DL (0.2-1.0); Calcium 9.4 MG/DL (8.5-10.1); Ferritin 1804.4 ng/ml (26-388); Osmolality,Calculated 270.2 MOS/KG (273-304); Total Protein 9.7 G/DL (6.4-8.3)
[2020-02-13] MEDS ORDERED: VANCOMYCIN INJ 1,500 MG in SODIUM CHLORIDE 0.9% 500 ML IV ONE ×2 (15:45→18:00)
[2020-02-13 15:47] LABS: PT Patient Result 11.2 SECS (9.8-11.9)
[2020-02-13] MEDS ORDERED: fentaNYL 100 MCG/2 ML VIAL IV STA (15:54)
[2020-02-13] MEDS ORDERED: ONDANSETRON 4 MG/2 ML VIAL IV STA (15:54)
[2020-02-13] MEDS ORDERED: ZALEPLON 5 MG CAPSULE PO PRN (18:36)
[2020-02-13] MEDS ORDERED: GLUCAGON 1 MG VIAL IM PRN (18:36)
[2020-02-13] MEDS ORDERED: ONDANSETRON 4 MG/2 ML VIAL IV PRN (18:36)
[2020-02-13] MEDS ORDERED: DEXTROSE 10% 250 ML BAG IV PRN (18:36)
[2020-02-13] MEDS ORDERED: DICLOFENAC 1% GEL 100 GM TUBE TOP PRN (18:41)
[2020-02-13] MEDS ORDERED: NITROGLYCERIN SL 0.4 MG TABLET SL PRN (18:41)
[2020-02-13] MEDS ORDERED: ASPIRIN EC 81 MG TABLET PO PRN (18:41)
[2020-02-13] MEDS ORDERED: GENTAMICIN INJ 240 MG in SODIUM CHLORIDE 0.9% 100 ML IV ONE (22:00)
[2020-02-13] MEDS: carvediloL 12.5 MG TABLET PO SCH (22:15)
[2020-02-13] MEDS: ATORVASTATIN 40 MG TABLET PO SCH (22:15)
[2020-02-13] MEDS: ENOXAPARIN 30 MG/0.3 ML SYRINGE SUBCUT SCH (22:44)
[2020-02-13] MEDS ORDERED: ALBUTEROL 2.5 MG/3 ML NEB RESP TX PRN (23:00)
[2020-02-14 06:48] LABS: Basophils % 0.1 % (0.0-0.8); Eosinophils # 0.1 10*3/uL (0.0-0.87); Eosinophils % 0.9 % (0.00-10.9); Hemoglobin 9.6 GM/DL (14.0-18.0); Immature Granulocytes % 0.4 %; Immature Granulocytes Absolute 0.06 #; Lymphocytes # 0.7 10*3/uL (1.4-4.0); Lymphocytes % 4.4 % (21.2-54.2); Mean Corpuscular HGB Conc 34.3 GM/DL (32-36); Mean Corpuscular Volume 91.5 FL (87-102); Mean Platelet Volume 9.5 FL (9.6-12.0); Monocytes % 3.2 % (1.7-12.7); Platelet Count 192 T/CUMM (130-400); Red Blood Count 3.06 MC/CUMM (3.8-5.5); Red Cell Distribution Width 15.6 % (9.3-17.3); White Blood Count 14.8 T/CUMM (4-12)
[2020-02-14 07:04] LABS: Calcium 9.1 MG/DL (8.5-10.1); Osmolality,Calculated 271.2 MOS/KG (273-304)
[2020-02-14 07:12] LABS: Eosinophils 1 % (0-10); Lymphocytes 5 % (20-55); Segmented Neutrophils 92 % (50-85); Total Cells Counted 100
[2020-02-14 07:13] LABS: Hypochromasia 1+; Microcytosis 1+
[2020-02-14] MEDS: SEVELAMER CARBONATE 800 MG TABLET PO SCH ×3 (08:13→16:25)
[2020-02-14] MEDS: DILTIAZEM CD 240 MG CAPSULE PO SCH (08:13)
[2020-02-14] MEDS: ISOSORBIDE MONONITRATE 30 MG TABLET PO SCH (08:15)
[2020-02-14] MEDS: LOSARTAN 25 MG TABLET PO SCH (08:15)
[2020-02-14] MEDS: carvediloL 12.5 MG TABLET PO SCH ×2 (08:15→16:24)
[2020-02-14] MEDS: CLOPIDOGREL 75 MG TABLET PO SCH (10:00)
[2020-02-14] MEDS ORDERED: VANCOMYCIN INJ 500 MG in SODIUM CHLORIDE 0.9% 100 ML IV PRN (10:31)
[2020-02-14] MEDS ORDERED: GENTAMICIN INJ 120 MG in PREMIX 1 EACH IV ONE (17:00)
[2020-02-14] MEDS ORDERED: GENTAMICIN INJ 120 MG in PREMIX 1 EACH IV PRN (17:00)
[2020-02-14] MEDS ORDERED: VANCOMYCIN INJ 500 MG in SODIUM CHLORIDE 0.9% 100 ML IV ONE (18:00)
[2020-02-14] MEDS: ATORVASTATIN 40 MG TABLET PO SCH (22:28)
[2020-02-14] MEDS: ENOXAPARIN 30 MG/0.3 ML SYRINGE SUBCUT SCH (22:31)
[2020-02-15] MEDS: DILTIAZEM CD 240 MG CAPSULE PO SCH (08:02)
[2020-02-15] MEDS: LOSARTAN 25 MG TABLET PO SCH (08:03)
[2020-02-15] MEDS: ISOSORBIDE MONONITRATE 30 MG TABLET PO SCH (08:03)
[2020-02-15] MEDS: SEVELAMER CARBONATE 800 MG TABLET PO SCH ×3 (08:03→16:21)
[2020-02-15] MEDS: CLOPIDOGREL 75 MG TABLET PO SCH (08:03)
[2020-02-15] MEDS: carvediloL 12.5 MG TABLET PO SCH ×2 (08:03→16:21)
[2020-02-15 10:02] LABS: Basophils % 0.1 % (0.0-0.8); Eosinophils # 0.5 10*3/uL (0.0-0.87); Eosinophils % 6.6 % (0.00-10.9); Hematocrit 31.7 VOL% (42.0-52.0); Hemoglobin 10.8 GM/DL (14.0-18.0); Immature Granulocytes % 0.5 %; Immature Granulocytes Absolute 0.04 #; Lymphocytes # 0.4 10*3/uL (1.4-4.0); Lymphocytes % 5.1 % (21.2-54.2); Mean Corpuscular HGB Conc 34.1 GM/DL (32-36); Mean Corpuscular Volume 94.1 FL (87-102); Mean Platelet Volume 9.4 FL (9.6-12.0); Monocytes % 5.6 % (1.7-12.7); Neutrophils % 82.1 % (38.7-73.9); Platelet Count 213 T/CUMM (130-400); Red Blood Count 3.37 MC/CUMM (3.8-5.5); Red Cell Distribution Width 15.5 % (9.3-17.3); White Blood Count 8.2 T/CUMM (4-12)
[2020-02-15 10:31] LABS: Albumin 3.4 G/DL (3.4-5.0); Bilirubin,Total 1.5 MG/DL (0.2-1.0); Osmolality,Calculated 271.7 MOS/KG (273-304)
[2020-02-15] MEDS: ATORVASTATIN 40 MG TABLET PO SCH (20:57)
[2020-02-15] MEDS: ENOXAPARIN 30 MG/0.3 ML SYRINGE SUBCUT SCH (21:10)
[2020-02-16 06:45] LABS: Basophils % 0.2 % (0.0-0.8); Eosinophils # 0.6 10*3/uL (0.0-0.87); Hematocrit 26.5 VOL% (42.0-52.0); Hemoglobin 9.1 GM/DL (14.0-18.0); Immature Granulocytes % 0.4 %; Immature Granulocytes Absolute 0.02 #; Lymphocytes # 0.6 10*3/uL (1.4-4.0); Lymphocytes % 11.5 % (21.2-54.2); Mean Corpuscular HGB Conc 34.3 GM/DL (32-36); Mean Corpuscular Volume 91.7 FL (87-102); Mean Platelet Volume 9.8 FL (9.6-12.0); Monocytes % 13.2 % (1.7-12.7); Neutrophils % 63.7 % (38.7-73.9); Platelet Count 195 T/CUMM (130-400); Red Blood Count 2.89 MC/CUMM (3.8-5.5); Red Cell Distribution Width 15.1 % (9.3-17.3); White Blood Count 5.4 T/CUMM (4-12)
[2020-02-16 07:21] LABS: Albumin 2.8 G/DL (3.4-5.0); Bilirubin,Total 1.3 MG/DL (0.2-1.0); Calcium 8.6 MG/DL (8.5-10.1); Osmolality,Calculated 272.9 MOS/KG (273-304); Total Protein 7.2 G/DL (6.4-8.3)
[2020-02-16 08:20] LABS: Anisocytosis Slight; Eosinophils 15 % (0-10); Lymphocytes 15 % (20-55); Platelet Estimate Normal; Segmented Neutrophils 63 % (50-85); Total Cells Counted 100
[2020-02-16] MEDS ORDERED: diphenhydrAMINE 50 MG/1 ML VIAL IV PRN (10:02)
[2020-02-16] MEDS: LOSARTAN 25 MG TABLET PO SCH (11:13)
[2020-02-16] MEDS: DILTIAZEM CD 240 MG CAPSULE PO SCH (11:14)
[2020-02-16] MEDS: CLOPIDOGREL 75 MG TABLET PO SCH (11:14)
[2020-02-16] MEDS: ISOSORBIDE MONONITRATE 30 MG TABLET PO SCH (11:14)
[2020-02-16] MEDS: carvediloL 12.5 MG TABLET PO SCH ×2 (11:14→17:00)
[2020-02-16] MEDS: SEVELAMER CARBONATE 800 MG TABLET PO SCH ×3 (11:15→17:00)
[2020-02-16] MEDS: ATORVASTATIN 40 MG TABLET PO SCH (20:57)
[2020-02-17 06:11] LABS: Basophils % 0.2 % (0.0-0.8); Eosinophils # 0.7 10*3/uL (0.0-0.87); Eosinophils % 14.8 % (0.00-10.9); Hematocrit 25.3 VOL% (42.0-52.0); Hemoglobin 8.9 GM/DL (14.0-18.0); Immature Granulocytes % 0.2 %; Immature Granulocytes Absolute 0.01 #; Lymphocytes # 0.8 10*3/uL (1.4-4.0); Mean Corpuscular HGB Conc 35.2 GM/DL (32-36); Mean Platelet Volume 9.4 FL (9.6-12.0); Monocytes % 14.2 % (1.7-12.7); Neutrophils % 54.6 % (38.7-73.9); Platelet Count 218 T/CUMM (130-400); Red Blood Count 2.72 MC/CUMM (3.8-5.5); Red Cell Distribution Width 15.4 % (9.3-17.3); White Blood Count 4.8 T/CUMM (4-12)
[2020-02-17 07:15] LABS: Atypical Lymphocytes Few; Eosinophils 14 % (0-10); Hypochromasia 1+; Lymphocytes 20 % (20-55); Microcytosis Slight; Segmented Neutrophils 59 % (50-85); Total Cells Counted 100
[2020-02-17 07:16] LABS: Platelet Estimate Normal
[2020-02-17 07:24] LABS: Calcium 8.2 MG/DL (8.5-10.1); Osmolality,Calculated 285.4 MOS/KG (273-304)
[2020-02-17] MEDS: CLOPIDOGREL 75 MG TABLET PO SCH (08:11)
[2020-02-17] MEDS: SEVELAMER CARBONATE 800 MG TABLET PO SCH ×3 (08:11→16:49)
[2020-02-17] MEDS ORDERED: DEXMEDETOMIDINE 200 MCG/2 ML VIAL ONE (08:20)
[2020-02-17] MEDS ORDERED: LIDOCAINE 1%/EPI INJ 20 ML VIAL ONE (08:50)
[2020-02-17] MEDS ORDERED: BUPIVACAINE MPF 0.25% 30 ML VIAL ONE (08:50)
[2020-02-17] MEDS ORDERED: HEPARIN 5,000 UNIT/1 ML VIAL ONE (08:50)
[2020-02-17] MEDS ORDERED: SODIUM CHLORIDE 0.9% 250 ML IV SCH (09:00)
[2020-02-17] MEDS ORDERED: MIDAZOLAM 2 MG/2 ML VIAL ONE (09:28)
[2020-02-17] MEDS ORDERED: propofoL 200 MG/20 ML VIAL IV ONE (09:28)
[2020-02-17] MEDS: carvediloL 12.5 MG TABLET PO SCH ×3 (10:03→17:48)
[2020-02-17] MEDS: LOSARTAN 25 MG TABLET PO SCH (10:36)
[2020-02-17] MEDS: DILTIAZEM CD 240 MG CAPSULE PO SCH (10:36)
[2020-02-17] MEDS: ISOSORBIDE MONONITRATE 30 MG TABLET PO SCH (10:36)
[2020-02-17] MEDS ORDERED: HEPARIN 10,000 UNIT/10 ML VIAL IV SCH (19:00)
[2020-02-17] MEDS: ATORVASTATIN 40 MG TABLET PO SCH (21:15)
[2020-02-18 06:28] LABS: Basophils % 0.1 % (0.0-0.8); Eosinophils # 0.5 10*3/uL (0.0-0.87); Eosinophils % 5.5 % (0.00-10.9); Hematocrit 28.8 VOL% (42.0-52.0); Hemoglobin 9.6 GM/DL (14.0-18.0); Immature Granulocytes % 0.9 %; Immature Granulocytes Absolute 0.09 #; Lymphocytes # 0.6 10*3/uL (1.4-4.0); Lymphocytes % 6.1 % (21.2-54.2); Mean Corpuscular HGB Conc 33.3 GM/DL (32-36); Mean Corpuscular Volume 94.4 FL (87-102); Mean Platelet Volume 9.6 FL (9.6-12.0); Monocytes % 6.6 % (1.7-12.7); Neutrophils % 80.8 % (38.7-73.9); Platelet Count 223 T/CUMM (130-400); Red Blood Count 3.05 MC/CUMM (3.8-5.5); Red Cell Distribution Width 15.5 % (9.3-17.3); White Blood Count 9.6 T/CUMM (4-12)
[2020-02-18 06:51] LABS: Osmolality,Calculated 274.7 MOS/KG (273-304)
[2020-02-18 08:55] VITALS: BP 148/70
[2020-02-18] MEDS: SEVELAMER CARBONATE 800 MG TABLET PO SCH (08:56)
[2020-02-18] MEDS: DILTIAZEM CD 240 MG CAPSULE PO SCH (08:57)
[2020-02-18] MEDS: LOSARTAN 25 MG TABLET PO SCH (08:57)
[2020-02-18] MEDS: CLOPIDOGREL 75 MG TABLET PO SCH (08:57)
[2020-02-18] MEDS: ISOSORBIDE MONONITRATE 30 MG TABLET PO SCH (08:57)
[2020-02-18] MEDS: carvediloL 12.5 MG TABLET PO SCH (08:58)
[2020-02-20] MEDS ORDERED: ceFAZolin 2,000 MG in PREMIX 1 EACH IV ONE (17:00)
== END 2020-02-18 11:00 | disposition home or self-care (01) | DRG 314 ==
LOC: N.ED 14:22 → N.EDINP 18:36 → N.2E 20:19 → N.3E 02-14 14:26
PROVIDERS: ADMIT Internal Medicine; ATTEND Internal Medicine

== ENCOUNTER 2020-07-29 18:20 | Observation (INO) ==
[2020-07-29] MEDS ORDERED: NITROGLYCERIN 2% OINT 1 INCH/GM PACK TOP STA (19:40)
[2020-07-29] MEDS ORDERED: MORPHINE 4 MG/1 ML VIAL IV STA (19:40)
[2020-07-29] MEDS ORDERED: ASPIRIN 325 MG TABLET PO STA (19:40)
[2020-07-29] MEDS ORDERED: ONDANSETRON 4 MG/2 ML VIAL IV STA (19:40)
[2020-07-29] MEDS ORDERED: ALUM/MAG/SIMETH/LIDO VISC 1:1 30 ML BOTTLE PO STA (19:40)
[2020-07-29 19:46] LABS: Basophils % 0.5 % (0.0-0.8); Eosinophils # 0.1 10*3/uL (0.0-0.87); Eosinophils % 1.6 % (0.00-10.9); Hematocrit 26.4 VOL% (42.0-52.0); Hemoglobin 8.8 GM/DL (14.0-18.0); Immature Granulocytes % 0.2 %; Immature Granulocytes Absolute 0.01 #; Lymphocytes # 2.1 10*3/uL (1.4-4.0); Lymphocytes % 34.1 % (21.2-54.2); Mean Corpuscular HGB Conc 33.3 GM/DL (32-36); Mean Corpuscular Volume 93.6 FL (87-102); Monocytes % 13.3 % (1.7-12.7); Neutrophils % 50.3 % (38.7-73.9); Platelet Count 189 T/CUMM (130-400); Red Blood Count 2.82 MC/CUMM (3.8-5.5); Red Cell Distribution Width 15.7 % (9.3-17.3); White Blood Count 6.2 T/CUMM (4-12)
[2020-07-29 19:54] LABS: INR 1.1; PT Patient Result 11.4 SECS (9.8-11.9)
[2020-07-29 20:00] LABS: Alanine Aminotransferase 28 U/L (16-61); Alkaline Phosphatase 156 U/L (45-117); Aspartate Amino Transferase 26 U/L (0-37); Bilirubin,Total < 0.39 MG/DL (0.2-1.0); Blood Urea Nitrogen 43 MG/DL (7-18); Calcium 8.2 MG/DL (8.5-10.1); Estimated Glom Filtration Rate 5 ML/MIN; Glucose 96 MG/DL (74-106); Osmolality,Calculated 280.1 MOS/KG (273-304); Total Protein 8.4 G/DL (6.4-8.3)
[2020-07-29 21:37] LABS: Barbiturates Screen,Urine Negative (Negative); Benzodiazepines Screen,Urine Negative (Negative); Cannabinoid Screen,Urine Negative (Negative); Opiate Screen,Urine Negative (Negative); Phencyclidine Screen,Urine Negative (Negative)
[2020-07-30] MEDS ORDERED: ACETAMINOPHEN 325 MG TABLET PO PRN (01:15)
[2020-07-30] MEDS ORDERED: MORPHINE 4 MG/1 ML VIAL IV PRN (01:15)
[2020-07-30] MEDS ORDERED: DOCUSATE SODIUM 100 MG CAPSULE PO PRN (01:15)
[2020-07-30] MEDS ORDERED: ONDANSETRON 4 MG/2 ML VIAL IV PRN (01:15)
[2020-07-30] MEDS ORDERED: hydrALAZINE 20 MG/1 ML VIAL IV PRN (01:15)
[2020-07-30] MEDS ORDERED: NITROGLYCERIN SL 0.4 MG TABLET SL PRN ×2 (01:32→09:49)
[2020-07-30 01:33] LABS: Basophils % 0.5 % (0.0-0.8); Eosinophils # 0.1 10*3/uL (0.0-0.87); Hematocrit 25.5 VOL% (42.0-52.0); Hemoglobin 8.5 GM/DL (14.0-18.0); Immature Granulocytes % 0.2 %; Immature Granulocytes Absolute 0.01 #; Lymphocytes # 2.4 10*3/uL (1.4-4.0); Lymphocytes % 40.8 % (21.2-54.2); Mean Corpuscular HGB Conc 33.3 GM/DL (32-36); Mean Corpuscular Volume 93.8 FL (87-102); Mean Platelet Volume 9.1 FL (9.6-12.0); Monocytes % 10.8 % (1.7-12.7); Neutrophils % 45.7 % (38.7-73.9); Platelet Count 169 T/CUMM (130-400); Red Blood Count 2.72 MC/CUMM (3.8-5.5); Red Cell Distribution Width 15.5 % (9.3-17.3); White Blood Count 5.9 T/CUMM (4-12)
[2020-07-30 01:54] LABS: Calcium 8.5 MG/DL (8.5-10.1)
[2020-07-30] MEDS: HEPARIN 5,000 UNIT/1 ML VIAL SUBCUT SCH ×2 (04:42→09:02)
[2020-07-30] MEDS ORDERED: INFLUENZA VIRUS VACCINE 0.5 ML SYRINGE IM ONE (05:11)
[2020-07-30] MEDS ORDERED: ASPIRIN EC 81 MG TABLET PO PRN (09:49)
[2020-07-30] MEDS ORDERED: carvediloL 25 MG TABLET PO SCH (10:00)
[2020-07-30] MEDS ORDERED: LOSARTAN 25 MG TABLET PO SCH (10:00)
[2020-07-30] MEDS ORDERED: ISOSORBIDE MONONITRATE 30 MG TABLET PO SCH (10:00)
[2020-07-30] MEDS ORDERED: DILTIAZEM CD 240 MG CAPSULE PO SCH (10:00)
[2020-07-30] MEDS ORDERED: CLOPIDOGREL 75 MG TABLET PO SCH (12:34)
[2020-07-30 16:14] VITALS: BP 111/60
[2020-07-30] MEDS ORDERED: ATORVASTATIN 40 MG TABLET PO SCH (21:00)
[2020-07-31] MEDS ORDERED: ASPIRIN EC 81 MG TABLET PO SCH (09:00)
== END 2020-07-30 16:15 | disposition home or self-care (01) ==
LOC: N.EDINP 18:20 → N.ED 18:20 → N.TELEN 23:40
PROVIDERS: ADMIT Internal Medicine; ATTEND Internal Medicine

== ENCOUNTER 2020-11-28 19:17 | Observation (INO) ==
[2020-11-28] MEDS ORDERED: FUROSEMIDE 100 MG/10 ML VIAL IV STA (19:39)
[2020-11-28] MEDS ORDERED: ONDANSETRON 4 MG/2 ML VIAL IV STA (19:39)
[2020-11-28] MEDS ORDERED: MORPHINE 4 MG/1 ML VIAL IV STA ×2 (19:40→21:01)
[2020-11-28 19:52] LABS: Basophils % 0.2 % (0.0-0.8); Eosinophils # 0.1 10*3/uL (0.0-0.87); Eosinophils % 1.2 % (0.00-10.9); Hematocrit 27.9 VOL% (42.0-52.0); Hemoglobin 9.3 GM/DL (14.0-18.0); Immature Granulocytes % 0.5 %; Immature Granulocytes Absolute 0.04 #; Lymphocytes # 1.5 10*3/uL (1.4-4.0); Lymphocytes % 17.6 % (21.2-54.2); Mean Corpuscular HGB Conc 33.3 GM/DL (32-36); Mean Corpuscular Volume 92.4 FL (87-102); Mean Platelet Volume 9.1 FL (9.6-12.0); Monocytes % 9.5 % (1.7-12.7); Platelet Count 251 T/CUMM (130-400); Red Blood Count 3.02 MC/CUMM (3.8-5.5); Red Cell Distribution Width 16.3 % (9.3-17.3); White Blood Count 8.4 T/CUMM (4-12)
[2020-11-28 20:03] LABS: INR 1.1; PT Patient Result 11.3 SECS (9.8-11.9)
[2020-11-28 20:30] LABS: Albumin 3.8 G/DL (3.4-5.0); Bilirubin,Total 0.4 MG/DL (0.2-1.0); Calcium 8.6 MG/DL (8.5-10.1); Osmolality,Calculated 288.4 MOS/KG (273-304); Total Protein 8.8 G/DL (6.4-8.3)
[2020-11-28 20:44] LABS: Potassium 6.2 MMOL/L (3.5-5.1)
[2020-11-28] MEDS ORDERED: INSULIN REGULAR 10 UNIT, CALCIUM GLUCONATE 1,000 MG in DEXTROSE 10% 250 ML IV ONE (21:02)
[2020-11-28] MEDS ORDERED: DEXTROSE 50% 25 GM/50 ML VIAL IV STA (22:06)
[2020-11-28] MEDS ORDERED: DEXTROSE 50% 25 GM/50 ML VIAL IV PRN (22:28)
[2020-11-28] MEDS ORDERED: GLUCAGON 1 MG VIAL IM PRN (22:28)
[2020-11-28] MEDS ORDERED: ACETAMINOPHEN 325 MG TABLET PO PRN (22:28)
[2020-11-28] MEDS ORDERED: ONDANSETRON 4 MG/2 ML VIAL IV PRN (22:28)
[2020-11-28] MEDS ORDERED: traMADol 50 MG TABLET PO PRN (22:36)
[2020-11-28] MEDS ORDERED: ASPIRIN EC 81 MG TABLET PO PRN (22:36)
[2020-11-28] MEDS ORDERED: KETOROLAC 30 MG/1 ML VIAL IV STA (22:38)
[2020-11-29 01:24] LABS: Basophils % 0.3 % (0.0-0.8); Eosinophils # 0.1 10*3/uL (0.0-0.87); Eosinophils % 0.9 % (0.00-10.9); Hematocrit 26.7 VOL% (42.0-52.0); Hemoglobin 8.9 GM/DL (14.0-18.0); Immature Granulocytes % 0.4 %; Immature Granulocytes Absolute 0.03 #; Lymphocytes # 1.4 10*3/uL (1.4-4.0); Lymphocytes % 18.2 % (21.2-54.2); Mean Corpuscular HGB Conc 33.3 GM/DL (32-36); Mean Platelet Volume 8.8 FL (9.6-12.0); Monocytes % 10.7 % (1.7-12.7); Neutrophils % 69.5 % (38.7-73.9); Platelet Count 218 T/CUMM (130-400); Red Blood Count 2.84 MC/CUMM (3.8-5.5); Red Cell Distribution Width 16.2 % (9.3-17.3); White Blood Count 7.7 T/CUMM (4-12)
[2020-11-29 02:08] LABS: Osmolality,Calculated 286.7 MOS/KG (273-304); Potassium 5.5 MMOL/L (3.5-5.1)
[2020-11-29] MEDS: DILTIAZEM CD 240 MG CAPSULE PO SCH (08:46)
[2020-11-29] MEDS: LOSARTAN 25 MG TABLET PO SCH (08:46)
[2020-11-29] MEDS: carvediloL 25 MG TABLET PO SCH ×2 (08:46→22:11)
[2020-11-29] MEDS: PANTOPRAZOLE 40 MG TABLET PO SCH (08:46)
[2020-11-29] MEDS: CYCLOBENZAPRINE 10 MG TABLET PO SCH ×2 (08:46→22:10)
[2020-11-29] MEDS: ISOSORBIDE MONONITRATE 30 MG TABLET PO SCH (08:46)
[2020-11-29] MEDS: ENOXAPARIN 30 MG/0.3 ML SYRINGE SUBCUT SCH (08:47)
[2020-11-29 10:57] LABS: Hepatitis B Core IgM Quant < 0.05 Index; Hepatitis B Surface Ag Quant 0.24 Index; Hepatitis B Surface Ag Result Non-Reactive (NonReactive)
[2020-11-29 11:00] LABS: Hepatitis C Virus Ab Quant 0.07 Index; Hepatitis C Virus Ab Result Non-Reactive (NonReactive)
[2020-11-29] MEDS ORDERED: ATORVASTATIN 40 MG TABLET PO SCH (21:00)
[2020-11-29] MEDS ORDERED: TAMSULOSIN 0.4 MG CAPSULE PO SCH (21:00)
[2020-11-30] MEDS: carvediloL 25 MG TABLET PO SCH (08:26)
[2020-11-30] MEDS: DILTIAZEM CD 240 MG CAPSULE PO SCH (08:26)
[2020-11-30] MEDS: ISOSORBIDE MONONITRATE 30 MG TABLET PO SCH (08:27)
[2020-11-30] MEDS: ENOXAPARIN 30 MG/0.3 ML SYRINGE SUBCUT SCH (08:27)
[2020-11-30] MEDS: LOSARTAN 25 MG TABLET PO SCH (08:27)
[2020-11-30] MEDS: PANTOPRAZOLE 40 MG TABLET PO SCH (08:27)
[2020-11-30 08:39] LABS: Basophils % 0.2 % (0.0-0.8); Eosinophils # 0.1 10*3/uL (0.0-0.87); Eosinophils % 1.6 % (0.00-10.9); Hematocrit 30.5 VOL% (42.0-52.0); Hemoglobin 9.9 GM/DL (14.0-18.0); Immature Granulocytes % 0.4 %; Immature Granulocytes Absolute 0.02 #; Lymphocytes # 1.6 10*3/uL (1.4-4.0); Lymphocytes % 32.3 % (21.2-54.2); Mean Corpuscular HGB Conc 32.5 GM/DL (32-36); Mean Corpuscular Volume 95.3 FL (87-102); Monocytes % 9.8 % (1.7-12.7); Neutrophils % 55.7 % (38.7-73.9); Platelet Count 238 T/CUMM (130-400)
[2020-11-30] MEDS: CYCLOBENZAPRINE 10 MG TABLET PO SCH (08:49)
[2020-11-30 08:53] LABS: Calcium 8.4 MG/DL (8.5-10.1); Osmolality,Calculated 275.7 MOS/KG (273-304); Potassium 5.1 MMOL/L (3.5-5.1)
[2020-11-30 11:46] VITALS: BP 122/81
== END 2020-11-30 12:30 | disposition home or self-care (01) ==
LOC: N.ED 19:17 → N.EDINP 19:17 → SUATTDRO 22:28 → N.EDINP 11-29 → N.TELEN 11-29 00:18
PROVIDERS: ADMIT Internal Medicine; ATTEND Internal Medicine

== ENCOUNTER 2021-03-07 16:35 | Inpatient (IN) ==
[2021-03-07 18:29] LABS: Basophils % 0.4 % (0.0-0.8); Eosinophils # 0.4 10*3/uL (0.0-0.87); Eosinophils % 5.8 % (0.00-10.9); Hemoglobin 10.5 GM/DL (14.0-18.0); Immature Granulocytes % 0.4 %; Immature Granulocytes Absolute 0.03 #; Lymphocytes # 1.7 10*3/uL (1.4-4.0); Lymphocytes % 22.6 % (21.2-54.2); Mean Corpuscular HGB Conc 33.9 GM/DL (32-36); Mean Corpuscular Volume 93.7 FL (87-102); Mean Platelet Volume 9.1 FL (9.6-12.0); Monocytes % 13.6 % (1.7-12.7); Neutrophils % 57.2 % (38.7-73.9); Platelet Count 202 T/CUMM (130-400); Red Blood Count 3.31 MC/CUMM (3.8-5.5); Red Cell Distribution Width 16.8 % (9.3-17.3); White Blood Count 7.6 T/CUMM (4-12)
[2021-03-07] MEDS ORDERED: ALBUTEROL 0.63 MG/3 ML NEB RESP TX STA (18:30)
[2021-03-07 18:52] LABS: Alanine Aminotransferase 23 U/L (16-61); Albumin 3.3 G/DL (3.4-5.0); Alkaline Phosphatase 131 U/L (45-117); Aspartate Amino Transferase 19 U/L (0-37); Bilirubin,Total < 0.39 MG/DL (0.2-1.0); Blood Urea Nitrogen 31 MG/DL (7-18); Calcium 8.2 MG/DL (8.5-10.1); Carbon Dioxide 34 MMOL/L (21-32); Estimated Glom Filtration Rate 8 ML/MIN; Glucose 93 MG/DL (74-106); Osmolality,Calculated 283.5 MOS/KG (273-304); Potassium 3.9 MMOL/L (3.5-5.1); Sodium 139 MMOL/L (136-145); Total Protein 7.7 G/DL (6.4-8.2)
[2021-03-07] MEDS ORDERED: methylPREDNISolone SOD SUC 125 MG/2 ML VIAL IV STA (19:41)
[2021-03-07] MEDS ORDERED: CEFEPIME 1,000 MG in SODIUM CHLORIDE 0.9% 100 ML IV STA (19:45)
[2021-03-07] MEDS ORDERED: diphenhydrAMINE CAP 25 MG CAPSULE PO PRN (20:37)
[2021-03-07] MEDS ORDERED: ONDANSETRON 4 MG/2 ML VIAL IV PRN (20:37)
[2021-03-07] MEDS ORDERED: GLUCAGON 1 MG VIAL IM PRN (20:37)
[2021-03-07] MEDS ORDERED: ZALEPLON 5 MG CAPSULE PO PRN (20:37)
[2021-03-07] MEDS ORDERED: hydrALAZINE 20 MG/1 ML VIAL IV PRN (20:37)
[2021-03-07] MEDS ORDERED: guaiFENesin/DM ER 600-30 MG TABLET PO PRN (20:37)
[2021-03-07] MEDS ORDERED: MORPHINE 4 MG/1 ML VIAL IV PRN (20:37)
[2021-03-07] MEDS ORDERED: DEXTROSE 50% 25 GM/50 ML VIAL IV PRN (20:37)
[2021-03-07] MEDS ORDERED: NICOTINE 21 MG/24 HR PATCH TRANSDERM PRN (20:37)
[2021-03-07] MEDS ORDERED: ACETAMINOPHEN 325 MG TABLET PO PRN (20:37)
[2021-03-07] MEDS ORDERED: LEVOFLOXACIN INJ 750 MG/150 ML PREMIX IV SCH (21:00)
[2021-03-07] MEDS: DOCUSATE SODIUM 100 MG CAPSULE PO SCH (21:35)
[2021-03-07] MEDS ORDERED: LEVOFLOXACIN INJ 750 MG/150 ML PREMIX IV ONE (22:00)
[2021-03-07] MEDS ORDERED: ASPIRIN EC 81 MG TABLET PO PRN (23:55)
[2021-03-07] MEDS ORDERED: NITROGLYCERIN SL 0.4 MG TABLET SL PRN (23:55)
[2021-03-08] MEDS: ALBUTEROL/IPRATROPIUM 3 ML NEB RESP TX SCH ×4 (00:30→20:12)
[2021-03-08 05:08] LABS: Basophils % 0.1 % (0.0-0.8); Eosinophils % 0.1 % (0.00-10.9); Hematocrit 33.8 VOL% (42.0-52.0); Hemoglobin 10.9 GM/DL (14.0-18.0); Immature Granulocytes % 1.1 %; Immature Granulocytes Absolute 0.09 #; Lymphocytes % 11.6 % (21.2-54.2); Mean Corpuscular HGB Conc 32.2 GM/DL (32-36); Mean Corpuscular Volume 93.6 FL (87-102); Mean Platelet Volume 9.1 FL (9.6-12.0); Monocytes % 1.1 % (1.7-12.7); Platelet Count 207 T/CUMM (130-400); Red Blood Count 3.61 MC/CUMM (3.8-5.5); Red Cell Distribution Width 16.7 % (9.3-17.3); White Blood Count 8.6 T/CUMM (4-12)
[2021-03-08 05:37] LABS: Calcium 8.3 MG/DL (8.5-10.1); Osmolality,Calculated 282.1 MOS/KG (273-304); Potassium 4.5 MMOL/L (3.5-5.1)
[2021-03-08] MEDS ORDERED: cefTRIAXone 1,000 MG in SODIUM CHLORIDE 0.9% 100 ML IV SCH (08:00)
[2021-03-08] MEDS: PANTOPRAZOLE 40 MG TABLET PO SCH (08:46)
[2021-03-08] MEDS: DILTIAZEM CD 240 MG CAPSULE PO SCH (08:46)
[2021-03-08] MEDS: CLOPIDOGREL 75 MG TABLET PO SCH (08:46)
[2021-03-08] MEDS: carvediloL 12.5 MG TABLET PO SCH ×2 (08:46→21:31)
[2021-03-08] MEDS: DOCUSATE SODIUM 100 MG CAPSULE PO SCH ×2 (08:46→21:32)
[2021-03-08] MEDS ORDERED: LOSARTAN 25 MG TABLET PO SCH (14:00)
[2021-03-08] MEDS: SEVELAMER CARBONATE 800 MG TABLET PO SCH (17:33)
[2021-03-08] MEDS ORDERED: ATORVASTATIN 40 MG TABLET PO SCH (21:00)
[2021-03-08] MEDS ORDERED: TAMSULOSIN 0.4 MG CAPSULE PO SCH (21:00)
[2021-03-09] MEDS: ALBUTEROL/IPRATROPIUM 3 ML NEB RESP TX SCH ×3 (01:32→14:19)
[2021-03-09 05:45] LABS: Basophils % 0.1 % (0.0-0.8); Hematocrit 30.1 VOL% (42.0-52.0); Immature Granulocytes % 1.7 %; Lymphocytes # 1.2 10*3/uL (1.4-4.0); Lymphocytes % 6.6 % (21.2-54.2); Mean Corpuscular HGB Conc 33.2 GM/DL (32-36); Mean Corpuscular Volume 91.2 FL (87-102); Mean Platelet Volume 9.6 FL (9.6-12.0); Monocytes % 4.1 % (1.7-12.7); Neutrophils % 87.5 % (38.7-73.9); Platelet Count 196 T/CUMM (130-400); Red Cell Distribution Width 16.9 % (9.3-17.3); White Blood Count 17.9 T/CUMM (4-12)
[2021-03-09 06:01] LABS: Calcium 8.4 MG/DL (8.5-10.1); Osmolality,Calculated 286.7 MOS/KG (273-304); Potassium 4.6 MMOL/L (3.5-5.1)
[2021-03-09 08:09] VITALS: BP 149/89
[2021-03-09] MEDS: DILTIAZEM CD 240 MG CAPSULE PO SCH (08:21)
[2021-03-09] MEDS: CLOPIDOGREL 75 MG TABLET PO SCH (08:21)
[2021-03-09] MEDS: DOCUSATE SODIUM 100 MG CAPSULE PO SCH (08:21)
[2021-03-09] MEDS: carvediloL 12.5 MG TABLET PO SCH (08:21)
[2021-03-09] MEDS: SEVELAMER CARBONATE 800 MG TABLET PO SCH ×2 (08:21→13:52)
[2021-03-09] MEDS: PANTOPRAZOLE 40 MG TABLET PO SCH (08:21)
[2021-03-09] MEDS ORDERED: LEVOFLOXACIN INJ 500 MG/100 ML PREMIX IV SCH (13:00)
== END 2021-03-09 15:02 | disposition home or self-care (01) | DRG 193 ==
LOC: N.ED 16:35 → N.EDINP 16:35 → N.5E 21:19
PROVIDERS: ADMIT Hospitalist; ATTEND Hospitalist

== ENCOUNTER 2021-08-04 20:20 | Inpatient (IN) ==
[2021-08-04] MEDS ORDERED: ASPIRIN 325 MG TABLET PO STA (20:32)
[2021-08-04] MEDS ORDERED: ALUM/MAG/SIMETH/LIDO VISC 1:1 30 ML BOTTLE PO STA (20:52)
[2021-08-04] MEDS ORDERED: NITROGLYCERIN 2% OINT 1 INCH/GM PACK TOP STA (20:52)
[2021-08-04] MEDS ORDERED: MORPHINE 2 MG/1 ML SYRINGE IV STA (20:52)
[2021-08-04] MEDS ORDERED: ONDANSETRON 4 MG/2 ML VIAL IV STA (20:52)
[2021-08-04 21:17] LABS: Basophils % 0.5 % (0.0-0.8); Eosinophils # 0.1 10*3/uL (0.0-0.87); Hematocrit 26.5 VOL% (42.0-52.0); Hemoglobin 9.1 GM/DL (14.0-18.0); Immature Granulocytes % 0.3 %; Immature Granulocytes Absolute 0.02 #; Lymphocytes # 2.2 10*3/uL (1.4-4.0); Lymphocytes % 34.7 % (21.2-54.2); Mean Corpuscular HGB Conc 34.3 GM/DL (32-36); Mean Corpuscular Volume 92.7 FL (87-102); Mean Platelet Volume 8.9 FL (9.6-12.0); Monocytes % 11.8 % (1.7-12.7); NRBC # 0.03 10*3/uL; Neutrophils % 50.7 % (38.7-73.9); Platelet Count 212 T/CUMM (130-400); Red Blood Count 2.86 MC/CUMM (3.8-5.5); Red Cell Distribution Width 19.5 % (9.3-17.3); White Blood Count 6.5 T/CUMM (4-12)
[2021-08-04 21:29] LABS: Albumin 4.1 G/DL (3.4-5.0); Bilirubin,Total 0.5 MG/DL (0.20-1.00); Calcium 10.4 MG/DL (8.5-10.1); Osmolality,Calculated 276.2 MOS/KG (273-304); Potassium 3.7 MMOL/L (3.5-5.1); Total Protein 8.7 G/DL (6.4-8.2)
[2021-08-04] MEDS ORDERED: GLUCAGON 1 MG VIAL IM PRN (23:41)
[2021-08-04] MEDS ORDERED: DEXTROSE 50% 25 GM/50 ML VIAL IV PRN (23:41)
[2021-08-05] MEDS: HEPARIN 5,000 UNIT/1 ML VIAL SUBCUT SCH ×3 (00:56→20:53)
[2021-08-05] MEDS ORDERED: ALBUTEROL 2.5 MG/3 ML NEB RESP TX PRN (01:00)
[2021-08-05 04:31] LABS: Basophils % 0.4 % (0.0-0.8); Eosinophils # 0.1 10*3/uL (0.0-0.87); Eosinophils % 2.5 % (0.00-10.9); Hematocrit 23.6 VOL% (42.0-52.0); Hemoglobin 8.1 GM/DL (14.0-18.0); Immature Granulocytes % 0.2 %; Immature Granulocytes Absolute 0.01 #; Lymphocytes # 1.9 10*3/uL (1.4-4.0); Mean Corpuscular HGB Conc 34.3 GM/DL (32-36); Mean Platelet Volume 9.5 FL (9.6-12.0); Monocytes % 13.6 % (1.7-12.7); Neutrophils % 44.3 % (38.7-73.9); Platelet Count 177 T/CUMM (130-400); Red Blood Count 2.51 MC/CUMM (3.8-5.5); Red Cell Distribution Width 19.5 % (9.3-17.3); White Blood Count 4.8 T/CUMM (4-12)
[2021-08-05 05:52] LABS: Risk Ratio 5.06; VLDL Cholesterol 49.8 MG/DL
[2021-08-05] MEDS ORDERED: ASPIRIN EC 81 MG TABLET PO PRN (09:00)
[2021-08-05] MEDS: carvediloL 12.5 MG TABLET PO SCH ×2 (09:00→20:51)
[2021-08-05] MEDS: CLOPIDOGREL 75 MG TABLET PO SCH (09:01)
[2021-08-05] MEDS: SEVELAMER CARBONATE 800 MG TABLET PO SCH ×3 (09:39→17:38)
[2021-08-05] MEDS: LOSARTAN 25 MG TABLET PO SCH (12:23)
[2021-08-05] MEDS: ISOSORBIDE MONONITRATE 30 MG TABLET PO SCH (12:23)
[2021-08-05] MEDS: NITROGLYCERIN SL 0.4 MG TABLET SL PRN ×2 (16:42→22:01)
[2021-08-05] MEDS: ATORVASTATIN 40 MG TABLET PO SCH (20:51)
[2021-08-06] MEDS: SEVELAMER CARBONATE 800 MG TABLET PO SCH ×3 (08:23→16:44)
[2021-08-06] MEDS: LOSARTAN 25 MG TABLET PO SCH (08:24)
[2021-08-06] MEDS: CLOPIDOGREL 75 MG TABLET PO SCH (08:24)
[2021-08-06] MEDS: carvediloL 12.5 MG TABLET PO SCH ×2 (08:24→20:50)
[2021-08-06] MEDS: ISOSORBIDE MONONITRATE 30 MG TABLET PO SCH (08:24)
[2021-08-06] MEDS: HEPARIN 5,000 UNIT/1 ML VIAL SUBCUT SCH ×2 (08:25→20:51)
[2021-08-06] MEDS: ATORVASTATIN 40 MG TABLET PO SCH (20:50)
[2021-08-06] MEDS ORDERED: MAGNESIUM HYDROXIDE SUSP 30 ML UDCUP PO PRN (22:12)
[2021-08-07 04:54] LABS: Basophils % 0.5 % (0.0-0.8); Eosinophils # 0.1 10*3/uL (0.0-0.87); Eosinophils % 2.4 % (0.00-10.9); Hematocrit 27.1 VOL% (42.0-52.0); Hemoglobin 8.9 GM/DL (14.0-18.0); Immature Granulocytes % 0.2 %; Immature Granulocytes Absolute 0.01 #; Lymphocytes # 1.9 10*3/uL (1.4-4.0); Lymphocytes % 33.9 % (21.2-54.2); Mean Corpuscular HGB Conc 32.8 GM/DL (32-36); Mean Corpuscular Volume 95.1 FL (87-102); Mean Platelet Volume 9.2 FL (9.6-12.0); Monocytes % 11.4 % (1.7-12.7); Neutrophils % 51.6 % (38.7-73.9); Platelet Count 204 T/CUMM (130-400); Red Blood Count 2.85 MC/CUMM (3.8-5.5); Red Cell Distribution Width 19.6 % (9.3-17.3); White Blood Count 5.5 T/CUMM (4-12)
[2021-08-07 05:16] LABS: Calcium 10.1 MG/DL (8.5-10.1); Osmolality,Calculated 274.2 MOS/KG (273-304); Potassium 4.8 MMOL/L (3.5-5.1)
[2021-08-07 05:24] LABS: % Iron Saturation 35.6 % (18-50); Ferritin 1163.4 ng/mL (26-388)
[2021-08-07] MEDS ORDERED: diphenhydrAMINE CAP 25 MG CAPSULE PO ONE (06:00)
[2021-08-07] MEDS ORDERED: DIAZEPAM 5 MG TABLET PO ONE (06:30)
[2021-08-07] MEDS ORDERED: diphenhydrAMINE CAP 50 MG CAPSULE PO ONE (06:30)
[2021-08-07] MEDS ORDERED: HEPARIN/NACL 0.9% 2 UNITS/ML 2,000 UNIT/1,000 ML BAG IV ONE (06:51)
[2021-08-07] MEDS ORDERED: fentaNYL 100 MCG/2 ML VIAL ONE (07:28)
[2021-08-07] MEDS ORDERED: MIDAZOLAM 2 MG/2 ML VIAL ONE (07:28)
[2021-08-07] MEDS ORDERED: LIDOCAINE 1% 20 ML VIAL ONE (07:30)
[2021-08-07] MEDS ORDERED: HEPARIN 5,000 UNIT/1 ML VIAL ONE (07:44)
[2021-08-07] MEDS ORDERED: CLOPIDOGREL 300 MG TABLET ONE (08:01)
[2021-08-07] MEDS: CLOPIDOGREL 75 MG TABLET PO SCH (09:59)
[2021-08-07] MEDS: carvediloL 12.5 MG TABLET PO SCH (09:59)
[2021-08-07] MEDS: LOSARTAN 25 MG TABLET PO SCH (10:00)
[2021-08-07] MEDS: SEVELAMER CARBONATE 800 MG TABLET PO SCH ×3 (10:00→18:11)
[2021-08-07] MEDS: ISOSORBIDE MONONITRATE 30 MG TABLET PO SCH (10:00)
[2021-08-07] MEDS: HEPARIN 5,000 UNIT/1 ML VIAL SUBCUT SCH (10:01)
[2021-08-07 16:07] VITALS: BP 96/57
== END 2021-08-07 18:46 | disposition home or self-care (01) | DRG 246 ==
LOC: N.EDINP 20:20 → N.ED 20:20 → SUATTDRO 23:41 → N.TELEN 08-05 19:45
PROVIDERS: ADMIT Internal Medicine; ATTEND Internal Medicine
PROC: CLCCHCL (ICD-10-PCS; 2021-08-07 09:15)

== ENCOUNTER 2021-12-02 22:40 | Inpatient (IN) ==
[2021-12-03] MEDS ORDERED: ACETAMINOPHEN 500 MG TABLET PO STA (01:09)
[2021-12-03 01:55] LABS: Basophils % 0.2 % (0.0-0.8); Hematocrit 26.2 VOL% (42.0-52.0); Hemoglobin 8.5 GM/DL (14.0-18.0); Immature Granulocytes % 0.6 %; Immature Granulocytes Absolute 0.06 #; Lymphocytes # 0.9 10*3/uL (1.4-4.0); Mean Corpuscular HGB Conc 32.4 GM/DL (32-36); Mean Corpuscular Volume 94.2 FL (87-102); Mean Platelet Volume 9.2 FL (9.6-12.0); Neutrophils % 79.2 % (38.7-73.9); Platelet Count 155 T/CUMM (130-400); Red Blood Count 2.78 MC/CUMM (3.8-5.5); Red Cell Distribution Width 16.9 % (9.3-17.3); White Blood Count 10.7 T/CUMM (4-12)
[2021-12-03 02:22] LABS: Albumin 3.9 G/DL (3.4-5.0); Bilirubin,Total 0.4 MG/DL (0.20-1.00); Calcium 9.5 MG/DL (8.5-10.1); Osmolality,Calculated 276.8 MOS/KG (273-304); Total Protein 8.5 G/DL (6.4-8.2)
[2021-12-03] MEDS ORDERED: INSULIN REGULAR 10 UNIT, CALCIUM GLUCONATE 1,000 MG in DEXTROSE 10% 250 ML IV ONE (02:33)
[2021-12-03] MEDS ORDERED: GLUCAGON 1 MG VIAL IM PRN (03:58)
[2021-12-03] MEDS ORDERED: SIMETHICONE CHEW 125 MG TABLET PO PRN (04:03)
[2021-12-03] MEDS ORDERED: ACETAMINOPHEN 325 MG TABLET PO PRN (04:03)
[2021-12-03] MEDS ORDERED: hydrALAZINE 20 MG/1 ML VIAL IV PRN (04:03)
[2021-12-03] MEDS ORDERED: ONDANSETRON 4 MG/2 ML VIAL IV PRN (04:03)
[2021-12-03 04:12] LABS: INR 1.1; PT Patient Result 11.9 SECS (10.5-12.0); Partial Thromboplastin Time 31.6 SECS (23.8-32.1)
[2021-12-03] MEDS ORDERED: DEXTROSE 10% 250 ML BAG IV PRN (04:24)
[2021-12-03 04:42] LABS: Bilirubin,Urine Negative (Negative); Blood, Urine Moderate mg/dL (Negative); Glucose,Urine (UA) 150 mg/dL (Negative); Ketones,Urine Negative (Negative); Mucus,Urine Occasional /LPF (Occasional); Nitrite,Urine Negative (Negative); Protein,Urine 100 MG/DL; RBC,Urine 2 /HPF (0-4); Urine Appearance CLEAR (Clear); Urine Color Straw (Yellow); Urine Specific Gravity 1.006 (1.001-1.035); Urine Urobilinogen < 2.0 EU/DL (<2.0)
[2021-12-03] MEDS ORDERED: CLOPIDOGREL 75 MG TABLET PO ONE (14:13)
[2021-12-03] MEDS ORDERED: MORPHINE 4 MG/1 ML VIAL IV PRN (14:27)
[2021-12-03] MEDS ORDERED: ASPIRIN 325 MG TABLET PO SCH (14:30)
[2021-12-03] MEDS ORDERED: METOPROLOL TARTRATE 50 MG TABLET PO SCH (14:30)
[2021-12-03] MEDS: PANTOPRAZOLE 40 MG TABLET PO SCH (14:35)
[2021-12-03] MEDS: LEVOFLOXACIN 500 MG TABLET PO SCH (14:35)
[2021-12-03] MEDS: DOCUSATE SODIUM 100 MG CAPSULE PO SCH ×2 (14:35→20:07)
[2021-12-03] MEDS: SODIUM ZIRCONIUM CYCLOSILICATE 10 GM PACK PO SCH ×3 (14:37→22:49)
[2021-12-03] MEDS: ISOSORBIDE MONONITRATE 30 MG TABLET PO SCH (14:54)
[2021-12-03] MEDS: ATORVASTATIN 40 MG TABLET PO SCH (14:54)
[2021-12-03] MEDS: TAMSULOSIN 0.4 MG CAPSULE PO SCH (14:54)
[2021-12-03] MEDS: COLCHICINE 0.6 MG CAPSULE PO SCH (20:07)
[2021-12-03] MEDS ORDERED: carvediloL 12.5 MG TABLET PO SCH (21:00)
[2021-12-04 06:18] LABS: Basophils % 0.4 % (0.0-0.8); Eosinophils # 0.1 10*3/uL (0.0-0.87); Eosinophils % 1.3 % (0.00-10.9); Hemoglobin 7.9 GM/DL (14.0-18.0); Immature Granulocytes % 0.4 %; Immature Granulocytes Absolute 0.02 #; Lymphocytes # 1.1 10*3/uL (1.4-4.0); Lymphocytes % 20.4 % (21.2-54.2); Mean Corpuscular HGB Conc 32.9 GM/DL (32-36); Mean Platelet Volume 9.8 FL (9.6-12.0); Monocytes % 19.6 % (1.7-12.7); Neutrophils % 57.9 % (38.7-73.9); Platelet Count 136 T/CUMM (130-400); Red Blood Count 2.58 MC/CUMM (3.8-5.5); Red Cell Distribution Width 16.5 % (9.3-17.3); White Blood Count 5.3 T/CUMM (4-12)
[2021-12-04 06:28] LABS: Osmolality,Calculated 278.7 MOS/KG (273-304); Potassium 4.3 MMOL/L (3.5-5.1)
[2021-12-04 06:51] LABS: Eosinophils 1 % (0-10); Hypochromia 1+; Lymphocytes 17 % (20-55); Microcytosis 1+; Platelet Estimate Normal; Segmented Neutrophils 69 % (50-85); Total Cells Counted 100
[2021-12-04] MEDS ORDERED: LOSARTAN 25 MG TABLET PO SCH (09:00)
[2021-12-04] MEDS: PANTOPRAZOLE 40 MG TABLET PO SCH (09:53)
[2021-12-04] MEDS: ASPIRIN EC 81 MG TABLET PO SCH (09:53)
[2021-12-04] MEDS: COLCHICINE 0.6 MG CAPSULE PO SCH ×2 (09:53→22:41)
[2021-12-04] MEDS: SODIUM ZIRCONIUM CYCLOSILICATE 10 GM PACK PO SCH ×3 (09:54→22:03)
[2021-12-04] MEDS: DOCUSATE SODIUM 100 MG CAPSULE PO SCH ×2 (09:54→22:41)
[2021-12-04] MEDS: METOPROLOL SUCCINATE XL 50 MG TABLET PO SCH (09:54)
[2021-12-04] MEDS: amLODIPine 10 MG TABLET PO SCH (09:54)
[2021-12-04] MEDS: TAMSULOSIN 0.4 MG CAPSULE PO SCH (09:54)
[2021-12-04] MEDS: ISOSORBIDE MONONITRATE 30 MG TABLET PO SCH (09:54)
[2021-12-04] MEDS: ATORVASTATIN 40 MG TABLET PO SCH (22:42)
[2021-12-05] MEDS: NITROGLYCERIN SL 0.4 MG TABLET SL PRN ×2 (02:18→03:01)
[2021-12-05] MEDS ORDERED: MORPHINE 4 MG/1 ML VIAL IV STA (03:23)
[2021-12-05] MEDS: PANTOPRAZOLE 40 MG TABLET PO SCH (08:21)
[2021-12-05] MEDS: METOPROLOL SUCCINATE XL 50 MG TABLET PO SCH (08:21)
[2021-12-05] MEDS: TAMSULOSIN 0.4 MG CAPSULE PO SCH (08:21)
[2021-12-05] MEDS: ISOSORBIDE MONONITRATE 30 MG TABLET PO SCH (08:21)
[2021-12-05] MEDS: amLODIPine 10 MG TABLET PO SCH (08:21)
[2021-12-05] MEDS: ASPIRIN EC 81 MG TABLET PO SCH (08:21)
[2021-12-05] MEDS: DOCUSATE SODIUM 100 MG CAPSULE PO SCH ×2 (08:21→22:52)
[2021-12-05] MEDS ORDERED: GABAPENTIN 400 MG CAPSULE PO PRN (08:21)
[2021-12-05] MEDS: COLCHICINE 0.6 MG CAPSULE PO SCH ×2 (08:21→22:52)
[2021-12-05] MEDS: LEVOFLOXACIN 500 MG TABLET PO SCH (08:22)
[2021-12-05] MEDS: CLOPIDOGREL 75 MG TABLET PO SCH (08:24)
[2021-12-05 08:32] LABS: Basophils % 0.1 % (0.0-0.8); Eosinophils # 0.1 10*3/uL (0.0-0.87); Eosinophils % 1.8 % (0.00-10.9); Hematocrit 25.8 VOL% (42.0-52.0); Hemoglobin 8.6 GM/DL (14.0-18.0); Immature Granulocytes % 0.3 %; Immature Granulocytes Absolute 0.02 #; Lymphocytes # 1.6 10*3/uL (1.4-4.0); Lymphocytes % 21.5 % (21.2-54.2); Mean Corpuscular HGB Conc 33.3 GM/DL (32-36); Mean Corpuscular Volume 91.5 FL (87-102); Mean Platelet Volume 9.9 FL (9.6-12.0); Monocytes % 14.5 % (1.7-12.7); Neutrophils % 61.8 % (38.7-73.9); Platelet Count 176 T/CUMM (130-400); Red Blood Count 2.82 MC/CUMM (3.8-5.5); Red Cell Distribution Width 16.7 % (9.3-17.3); White Blood Count 7.4 T/CUMM (4-12)
[2021-12-05 08:48] LABS: Osmolality,Calculated 284.4 MOS/KG (273-304); Potassium 4.2 MMOL/L (3.5-5.1)
[2021-12-05] MEDS: SEVELAMER CARBONATE 800 MG TABLET PO SCH ×2 (13:07→16:46)
[2021-12-05] MEDS ORDERED: ceFAZolin 2,000 MG/50 ML DUPLEX IV SCH (17:00)
[2021-12-05] MEDS: ATORVASTATIN 40 MG TABLET PO SCH (22:52)
[2021-12-06 06:41] LABS: Basophils % 0.2 % (0.0-0.8); Eosinophils # 0.1 10*3/uL (0.0-0.87); Eosinophils % 1.4 % (0.00-10.9); Hematocrit 25.3 VOL% (42.0-52.0); Hemoglobin 8.6 GM/DL (14.0-18.0); Immature Granulocytes % 0.3 %; Immature Granulocytes Absolute 0.02 #; Lymphocytes # 1.7 10*3/uL (1.4-4.0); Lymphocytes % 26.1 % (21.2-54.2); Mean Corpuscular Volume 90.7 FL (87-102); Mean Platelet Volume 9.9 FL (9.6-12.0); Monocytes % 14.6 % (1.7-12.7); Neutrophils % 57.4 % (38.7-73.9); Platelet Count 199 T/CUMM (130-400); Red Blood Count 2.79 MC/CUMM (3.8-5.5); Red Cell Distribution Width 16.5 % (9.3-17.3); White Blood Count 6.3 T/CUMM (4-12)
[2021-12-06 06:56] LABS: Calcium 8.8 MG/DL (8.5-10.1); Osmolality,Calculated 276.2 MOS/KG (273-304); Potassium 4.4 MMOL/L (3.5-5.1)
[2021-12-06] MEDS: amLODIPine 10 MG TABLET PO SCH (08:24)
[2021-12-06] MEDS: METOPROLOL SUCCINATE XL 50 MG TABLET PO SCH (08:24)
[2021-12-06] MEDS: ASPIRIN EC 81 MG TABLET PO SCH (08:24)
[2021-12-06] MEDS: SEVELAMER CARBONATE 800 MG TABLET PO SCH ×2 (08:25→12:40)
[2021-12-06] MEDS: TAMSULOSIN 0.4 MG CAPSULE PO SCH (08:25)
[2021-12-06] MEDS: ISOSORBIDE MONONITRATE 30 MG TABLET PO SCH (08:25)
[2021-12-06] MEDS: DOCUSATE SODIUM 100 MG CAPSULE PO SCH (08:25)
[2021-12-06] MEDS: CLOPIDOGREL 75 MG TABLET PO SCH (08:25)
[2021-12-06] MEDS: PANTOPRAZOLE 40 MG TABLET PO SCH (08:25)
[2021-12-06] MEDS: COLCHICINE 0.6 MG CAPSULE PO SCH (08:25)
[2021-12-06 12:13] VITALS: BP 155/79
== END 2021-12-06 16:05 | disposition home or self-care (01) | DRG 640 ==
LOC: N.EDINP 22:40 → N.ED 22:40 → SUATTDRO 12-03 03:58 → N.5E 12-03 17:24
PROVIDERS: ADMIT Internal Medicine; ATTEND Internal Medicine

== ENCOUNTER 2021-12-09 19:23 | Inpatient (IN) ==
[2021-12-09] MEDS ORDERED: SODIUM CHLORIDE 0.9% 250 ML IV STA (23:35)
[2021-12-09] MEDS ORDERED: ONDANSETRON 4 MG/2 ML VIAL IV STA (23:35)
[2021-12-09] MEDS ORDERED: ACETAMINOPHEN 500 MG TABLET ONE (23:49)
[2021-12-09] MEDS ORDERED: ACETAMINOPHEN 500 MG TABLET PO STA (23:50)
[2021-12-10 00:31] LABS: Albumin 3.5 G/DL (3.4-5.0); Bilirubin,Total 0.4 MG/DL (0.20-1.00); Osmolality,Calculated 279.7 MOS/KG (273-304); Potassium 5.2 MMOL/L (3.5-5.1); Total Protein 8.3 G/DL (6.4-8.2)
[2021-12-10 00:39] LABS: RBC,Urine 3 /HPF (0-4); Squamous Epithelial Cell,Urine Occasional /HPF (0-10)
[2021-12-10 00:41] LABS: Bilirubin,Urine Negative (Negative); Blood, Urine Moderate mg/dL (Negative); Glucose,Urine (UA) 100 mg/dL (Negative); Ketones,Urine Negative (Negative); Nitrite,Urine Negative (Negative); Protein,Urine 100 MG/DL; Urine Appearance Clear (Clear); Urine Color Yellow (Yellow); Urine Specific Gravity 1.015 (1.001-1.035); Urine Urobilinogen 0.2 EU/DL (<2.0); Urine pH 8.5 (4.5-8.0)
[2021-12-10 00:52] LABS: Basophils % 0.1 % (0.0-0.8); Eosinophils % 0.3 % (0.00-10.9); Hematocrit 22.3 VOL% (42.0-52.0); Hemoglobin 7.6 GM/DL (14.0-18.0); Immature Granulocytes % 1.1 %; Immature Granulocytes Absolute 0.15 #; Lymphocytes # 0.3 10*3/uL (1.4-4.0); Lymphocytes % 2.1 % (21.2-54.2); Mean Corpuscular HGB Conc 34.1 GM/DL (32-36); Mean Corpuscular Volume 93.3 FL (87-102); Mean Platelet Volume 9.4 FL (9.6-12.0); Monocytes % 2.9 % (1.7-12.7); Neutrophils % 93.5 % (38.7-73.9); Platelet Count 278 T/CUMM (130-400); Red Blood Count 2.39 MC/CUMM (3.8-5.5); Red Cell Distribution Width 16.9 % (9.3-17.3); White Blood Count 13.3 T/CUMM (4-12)
[2021-12-10 02:01] LABS: Lymphocytes 3 % (20-55); Platelet Estimate Adequate; Segmented Neutrophils 95 % (50-85); Total Cells Counted 100
[2021-12-10] MEDS ORDERED: hydrALAZINE 20 MG/1 ML VIAL IV PRN (02:20)
[2021-12-10] MEDS ORDERED: ACETAMINOPHEN 325 MG TABLET PO PRN (02:20)
[2021-12-10] MEDS ORDERED: ONDANSETRON 4 MG/2 ML VIAL IV PRN (02:20)
[2021-12-10] MEDS ORDERED: GLUCAGON 1 MG VIAL IM PRN (02:20)
[2021-12-10] MEDS ORDERED: DEXTROSE 10% 250 ML BAG IV PRN (02:20)
[2021-12-10] MEDS ORDERED: GABAPENTIN 400 MG CAPSULE PO PRN (03:00)
[2021-12-10] MEDS ORDERED: ALBUTEROL 2.5 MG/3 ML NEB RESP TX PRN (03:00)
[2021-12-10] MEDS: MEROPENEM 500 MG in SODIUM CHLORIDE 0.9% 100 ML IV SCH (03:06)
[2021-12-10] MEDS ORDERED: VANCOMYCIN INJ 500 MG in SODIUM CHLORIDE 0.9% 100 ML IV PRN (03:32)
[2021-12-10] MEDS ORDERED: VANCOMYCIN INJ 1,500 MG in SODIUM CHLORIDE 0.9% 500 ML IV ONE (05:00)
[2021-12-10 05:22] LABS: Basophils % 0.1 % (0.0-0.8); Eosinophils # 0.1 10*3/uL (0.0-0.87); Eosinophils % 0.8 % (0.00-10.9); Hematocrit 20.6 VOL% (42.0-52.0); Hemoglobin 6.8 GM/DL (14.0-18.0); Immature Granulocytes % 1.2 %; Immature Granulocytes Absolute 0.17 #; Lymphocytes # 0.4 10*3/uL (1.4-4.0); Mean Corpuscular Volume 94.1 FL (87-102); Mean Platelet Volume 9.2 FL (9.6-12.0); Monocytes % 1.8 % (1.7-12.7); Neutrophils % 93.1 % (38.7-73.9); Platelet Count 219 T/CUMM (130-400); Red Blood Count 2.19 MC/CUMM (3.8-5.5); Red Cell Distribution Width 17.1 % (9.3-17.3); White Blood Count 14.1 T/CUMM (4-12)
[2021-12-10 05:39] LABS: Calcium 8.8 MG/DL (8.5-10.1); Osmolality,Calculated 285.5 MOS/KG (273-304); Potassium 4.5 MMOL/L (3.5-5.1)
[2021-12-10 05:49] LABS: Hypochromia 2+; Lymphocytes 2 % (20-55); Microcytosis 1+; Platelet Estimate Adequate; Segmented Neutrophils 98 % (50-85); Total Cells Counted 100
[2021-12-10] MEDS: SEVELAMER CARBONATE 800 MG TABLET PO SCH ×3 (08:24→17:53)
[2021-12-10] MEDS: ASPIRIN EC 81 MG TABLET PO SCH (09:12)
[2021-12-10] MEDS: TAMSULOSIN 0.4 MG CAPSULE PO SCH (09:12)
[2021-12-10] MEDS: CLOPIDOGREL 75 MG TABLET PO SCH (09:13)
[2021-12-10] MEDS: ISOSORBIDE MONONITRATE 30 MG TABLET PO SCH (09:13)
[2021-12-10] MEDS: PANTOPRAZOLE 40 MG TABLET PO SCH (09:13)
[2021-12-10] MEDS: METOPROLOL SUCCINATE XL 50 MG TABLET PO SCH (09:13)
[2021-12-10 18:55] LABS: Hematocrit 23.3 VOL% (42.0-52.0); Hemoglobin 7.8 GM/DL (14.0-18.0)
[2021-12-10] MEDS: ALUMINUM/MAGNES/SIMETH MAX STR 30 ML UDCUP PO PRN (21:18)
[2021-12-10] MEDS: ATORVASTATIN 40 MG TABLET PO SCH (21:18)
[2021-12-11] MEDS: MORPHINE 4 MG/1 ML VIAL IV PRN ×2 (00:54→20:29)
[2021-12-11] MEDS: MEROPENEM 500 MG in SODIUM CHLORIDE 0.9% 100 ML IV SCH (03:55)
[2021-12-11] MEDS: ALUMINUM/MAGNES/SIMETH MAX STR 30 ML UDCUP PO PRN ×2 (04:50→18:12)
[2021-12-11] MEDS: CLOPIDOGREL 75 MG TABLET PO SCH (09:21)
[2021-12-11] MEDS: TAMSULOSIN 0.4 MG CAPSULE PO SCH (09:21)
[2021-12-11] MEDS: METOPROLOL SUCCINATE XL 50 MG TABLET PO SCH (09:21)
[2021-12-11] MEDS: ASPIRIN EC 81 MG TABLET PO SCH (09:21)
[2021-12-11] MEDS: SEVELAMER CARBONATE 800 MG TABLET PO SCH ×3 (09:21→17:35)
[2021-12-11] MEDS: PANTOPRAZOLE 40 MG TABLET PO SCH (09:21)
[2021-12-11] MEDS: ISOSORBIDE MONONITRATE 30 MG TABLET PO SCH (09:21)
[2021-12-11] MEDS: ATORVASTATIN 40 MG TABLET PO SCH (20:29)
[2021-12-12] MEDS: MEROPENEM 500 MG in SODIUM CHLORIDE 0.9% 100 ML IV SCH (03:32)
[2021-12-12] MEDS: MORPHINE 4 MG/1 ML VIAL IV PRN (05:36)
[2021-12-12 06:34] LABS: Basophils % 0.2 % (0.0-0.8); Eosinophils # 0.4 10*3/uL (0.0-0.87); Hematocrit 20.7 VOL% (42.0-52.0); Hemoglobin 6.8 GM/DL (14.0-18.0); Immature Granulocytes Absolute 0.06 #; Lymphocytes % 15.9 % (21.2-54.2); Mean Corpuscular HGB Conc 32.9 GM/DL (32-36); Mean Corpuscular Volume 94.1 FL (87-102); Mean Platelet Volume 9.5 FL (9.6-12.0); Monocytes % 4.8 % (1.7-12.7); Neutrophils % 72.1 % (38.7-73.9); Platelet Count 231 T/CUMM (130-400); Red Cell Distribution Width 17.1 % (9.3-17.3); White Blood Count 6.3 T/CUMM (4-12)
[2021-12-12 06:52] LABS: Calcium 8.5 MG/DL (8.5-10.1); Osmolality,Calculated 279.4 MOS/KG (273-304); Potassium 4.7 MMOL/L (3.5-5.1)
[2021-12-12] MEDS ORDERED: SODIUM CHLORIDE 0.9% 1,000 ML IV PRN (08:34)
[2021-12-12] MEDS: PANTOPRAZOLE 40 MG TABLET PO SCH (09:09)
[2021-12-12] MEDS: CLOPIDOGREL 75 MG TABLET PO SCH (09:09)
[2021-12-12] MEDS: ISOSORBIDE MONONITRATE 30 MG TABLET PO SCH (09:09)
[2021-12-12] MEDS: ASPIRIN EC 81 MG TABLET PO SCH (09:09)
[2021-12-12] MEDS: SEVELAMER CARBONATE 800 MG TABLET PO SCH ×3 (09:09→16:44)
[2021-12-12] MEDS: TAMSULOSIN 0.4 MG CAPSULE PO SCH (09:09)
[2021-12-12] MEDS ORDERED: GABAPENTIN 100 MG CAPSULE PO PRN (10:27)
[2021-12-12] MEDS: METOPROLOL SUCCINATE XL 50 MG TABLET PO SCH (14:34)
[2021-12-12 15:04] LABS: Hematocrit 29.8 VOL% (42.0-52.0)
[2021-12-12] MEDS ORDERED: VANCOMYCIN INJ 500 MG in SODIUM CHLORIDE 0.9% 100 ML IV ONE (17:00)
[2021-12-12] MEDS: ATORVASTATIN 40 MG TABLET PO SCH (20:25)
[2021-12-13] MEDS: MORPHINE 4 MG/1 ML VIAL IV PRN (00:28)
[2021-12-13 06:20] LABS: Basophils % 0.1 % (0.0-0.8); Eosinophils # 0.3 10*3/uL (0.0-0.87); Eosinophils % 4.8 % (0.00-10.9); Hematocrit 26.3 VOL% (42.0-52.0); Hemoglobin 8.9 GM/DL (14.0-18.0); Immature Granulocytes % 0.7 %; Immature Granulocytes Absolute 0.05 #; Lymphocytes # 1.2 10*3/uL (1.4-4.0); Mean Corpuscular HGB Conc 33.8 GM/DL (32-36); Mean Corpuscular Volume 88.6 FL (87-102); Mean Platelet Volume 9.1 FL (9.6-12.0); Monocytes % 7.3 % (1.7-12.7); Neutrophils % 69.1 % (38.7-73.9); Platelet Count 208 T/CUMM (130-400); Red Blood Count 2.97 MC/CUMM (3.8-5.5); Red Cell Distribution Width 18.2 % (9.3-17.3); White Blood Count 6.9 T/CUMM (4-12)
[2021-12-13 06:40] LABS: Calcium 8.6 MG/DL (8.5-10.1); Osmolality,Calculated 278.1 MOS/KG (273-304); Potassium 5.4 MMOL/L (3.5-5.1)
[2021-12-13 06:46] LABS: Lymphocytes 9 % (20-55); Platelet Estimate Adequate; Segmented Neutrophils 87 % (50-85); Total Cells Counted 100
[2021-12-13 07:59] VITALS: BP 148/85
[2021-12-13] MEDS: TAMSULOSIN 0.4 MG CAPSULE PO SCH (09:05)
[2021-12-13] MEDS: SEVELAMER CARBONATE 800 MG TABLET PO SCH ×2 (09:05→11:29)
[2021-12-13] MEDS: ASPIRIN EC 81 MG TABLET PO SCH (09:06)
[2021-12-13] MEDS: METOPROLOL SUCCINATE XL 50 MG TABLET PO SCH (09:06)
[2021-12-13] MEDS: ISOSORBIDE MONONITRATE 30 MG TABLET PO SCH (09:06)
[2021-12-13] MEDS: PANTOPRAZOLE 40 MG TABLET PO SCH (09:06)
[2021-12-13] MEDS: CLOPIDOGREL 75 MG TABLET PO SCH (09:06)
[2021-12-13] MEDS ORDERED: COLCHICINE 0.6 MG CAPSULE PO SCH (14:00)
[2021-12-13] MEDS ORDERED: hydrALAZINE 25 MG TABLET PO SCH (15:00)
== END 2021-12-13 16:27 | disposition home or self-care (01) | DRG 867 ==
LOC: N.ED 19:23 → N.EDINP 12-10 02:20 → N.3E 12-10 17:50
PROVIDERS: ADMIT Internal Medicine Geriatric Medicine; ATTEND Internal Medicine Geriatric Medicine

== ENCOUNTER 2022-02-09 02:27 | Inpatient (IN) ==
[2022-02-09 03:23] LABS: Basophils # 0.1 10*3/uL (0.0-0.2); Basophils % 0.8 % (0.0-0.8); Eosinophils # 0.2 10*3/uL (0.0-0.87); Eosinophils % 3.2 % (0.00-10.9); Hematocrit 21.8 VOL% (42.0-52.0); Hemoglobin 7.2 GM/DL (14.0-18.0); Immature Granulocytes % 0.2 %; Immature Granulocytes Absolute 0.01 #; Lymphocytes # 1.5 10*3/uL (1.4-4.0); Mean Corpuscular Volume 92.8 FL (87-102); Mean Platelet Volume 9.6 FL (9.6-12.0); Monocytes # 0.5 10*3/uL (0.11-0.8); Monocytes % 8.4 % (1.7-12.7); Neutrophils % 63.4 % (38.7-73.9); Platelet Count 166 T/CUMM (130-400); Red Blood Count 2.35 MC/CUMM (3.8-5.5); Red Cell Distribution Width 14.7 % (9.3-17.3); White Blood Count 6.2 T/CUMM (4-12)
[2022-02-09] MEDS ORDERED: MORPHINE 2 MG/1 ML SYRINGE IV STA ×2 (03:27→04:48)
[2022-02-09] MEDS ORDERED: NITROGLYCERIN SL 0.4 MG TABLET SL STA (03:28)
[2022-02-09 03:36] LABS: PT Patient Result 11.2 SECS (10.5-12.0); Partial Thromboplastin Time 28.5 SECS (23.8-32.1)
[2022-02-09 03:56] LABS: Alanine Aminotransferase 29 U/L (16-61); Albumin 3.9 G/DL (3.4-5.0); Alkaline Phosphatase 95 U/L (45-117); Aspartate Amino Transferase 26 U/L (0-37); Bilirubin,Total < 0.39 MG/DL (0.20-1.00); Blood Urea Nitrogen 52 MG/DL (7-18); Calcium 9.7 MG/DL (8.5-10.1); Carbon Dioxide 24 MMOL/L (21-32); Chloride 106 MMOL/L (98-107); Estimated Glom Filtration Rate 5 ML/MIN; Glucose 96 MG/DL (74-106); Osmolality,Calculated 283.1 MOS/KG (273-304); Sodium 135 MMOL/L (136-145); Total Protein 7.8 G/DL (6.4-8.2)
[2022-02-09 04:22] LABS: Potassium 6.2 MMOL/L (3.5-5.1)
[2022-02-09] MEDS ORDERED: INSULIN REGULAR 100 UNIT/ML IV STA (04:26)
[2022-02-09] MEDS ORDERED: DEXTROSE 50% 25 GM/50 ML VIAL IV STA (04:26)
[2022-02-09] MEDS ORDERED: CALCIUM GLUCONATE RIDER 2,000 MG/100 ML PREMIX IV ONE (04:26)
[2022-02-09] MEDS ORDERED: SODIUM ZIRCONIUM CYCLOSILICATE 10 GM PACK PO STA (04:28)
[2022-02-09] MEDS ORDERED: DEXTROSE 50% 25 GM/50 ML SYRINGE IV STA (04:29)
[2022-02-09] MEDS ORDERED: ALUMINUM/MAGNES/SIMETH MAX STR 30 ML UDCUP PO PRN (05:12)
[2022-02-09] MEDS ORDERED: hydrALAZINE 20 MG/1 ML VIAL IV PRN (05:12)
[2022-02-09] MEDS ORDERED: DEXTROSE 10% 250 ML BAG IV PRN (05:12)
[2022-02-09] MEDS ORDERED: GLUCAGON 1 MG VIAL IM PRN (05:12)
[2022-02-09] MEDS: ONDANSETRON 4 MG/2 ML VIAL IV PRN ×3 (05:38→21:05)
[2022-02-09] MEDS: PANTOPRAZOLE 40 MG TABLET PO SCH (08:23)
[2022-02-09] MEDS: CLOPIDOGREL 75 MG TABLET PO SCH (08:23)
[2022-02-09] MEDS: ASPIRIN EC 81 MG TABLET PO SCH (08:23)
[2022-02-09] MEDS: MORPHINE 2 MG/1 ML SYRINGE IV PRN ×2 (08:26→23:29)
[2022-02-09] MEDS ORDERED: LOPERAMIDE 2 MG CAPSULE PO PRN (09:09)
[2022-02-09] MEDS ORDERED: LOSARTAN 25 MG TABLET PO SCH (12:00)
[2022-02-09] MEDS ORDERED: TAMSULOSIN 0.4 MG CAPSULE PO SCH (12:00)
[2022-02-09] MEDS: ISOSORBIDE MONONITRATE 30 MG TABLET PO SCH (12:08)
[2022-02-09] MEDS: METOPROLOL SUCCINATE XL 100 MG TABLET PO SCH (12:08)
[2022-02-09] MEDS: SEVELAMER CARBONATE 800 MG TABLET PO SCH ×2 (15:18→21:06)
[2022-02-09] MEDS: SODIUM ZIRCONIUM CYCLOSILICATE 10 GM PACK PO SCH ×2 (15:22→23:29)
[2022-02-09] MEDS: GABAPENTIN 400 MG CAPSULE PO SCH ×2 (15:25→21:06)
[2022-02-09] MEDS: ATORVASTATIN 40 MG TABLET PO SCH (21:07)
[2022-02-10 05:25] LABS: Basophils % 0.6 % (0.0-0.8); Eosinophils # 0.3 10*3/uL (0.0-0.87); Eosinophils % 4.1 % (0.00-10.9); Hematocrit 21.1 VOL% (42.0-52.0); Hemoglobin 7.1 GM/DL (14.0-18.0); Immature Granulocytes % 0.5 %; Immature Granulocytes Absolute 0.03 #; Lymphocytes # 1.3 10*3/uL (1.4-4.0); Lymphocytes % 20.9 % (21.2-54.2); Mean Corpuscular HGB Conc 33.6 GM/DL (32-36); Mean Corpuscular Volume 92.1 FL (87-102); Mean Platelet Volume 9.9 FL (9.6-12.0); Monocytes # 0.5 10*3/uL (0.11-0.8); Monocytes % 7.5 % (1.7-12.7); Neutrophils % 66.4 % (38.7-73.9); Platelet Count 158 T/CUMM (130-400); Red Blood Count 2.29 MC/CUMM (3.8-5.5); Red Cell Distribution Width 14.5 % (9.3-17.3); White Blood Count 6.4 T/CUMM (4-12)
[2022-02-10 05:48] LABS: Calcium 9.3 MG/DL (8.5-10.1); Osmolality,Calculated 281.4 MOS/KG (273-304); Potassium 5.5 MMOL/L (3.5-5.1)
[2022-02-10] MEDS: MORPHINE 2 MG/1 ML SYRINGE IV PRN (12:09)
[2022-02-10] MEDS: SODIUM ZIRCONIUM CYCLOSILICATE 10 GM PACK PO SCH ×3 (13:53→20:32)
[2022-02-10] MEDS ORDERED: HEPARIN 10,000 UNIT/10 ML VIAL IV SCH (15:00)
[2022-02-10] MEDS: TAMSULOSIN 0.4 MG CAPSULE PO SCH ×2 (17:06→20:30)
[2022-02-10] MEDS: SEVELAMER CARBONATE 800 MG TABLET PO SCH ×3 (17:06→20:31)
[2022-02-10] MEDS: CLOPIDOGREL 75 MG TABLET PO SCH (17:06)
[2022-02-10] MEDS: ASPIRIN EC 81 MG TABLET PO SCH (17:06)
[2022-02-10] MEDS: METOPROLOL SUCCINATE XL 100 MG TABLET PO SCH (17:07)
[2022-02-10] MEDS: ISOSORBIDE MONONITRATE 30 MG TABLET PO SCH (17:07)
[2022-02-10] MEDS: PANTOPRAZOLE 40 MG TABLET PO SCH (17:07)
[2022-02-10] MEDS: GABAPENTIN 400 MG CAPSULE PO SCH ×4 (17:07→20:30)
[2022-02-10] MEDS: ATORVASTATIN 40 MG TABLET PO SCH (20:32)
[2022-02-10] MEDS: ONDANSETRON 4 MG/2 ML VIAL IV PRN (20:32)
[2022-02-11 07:37] LABS: Basophils % 0.5 % (0.0-0.8); Eosinophils # 0.3 10*3/uL (0.0-0.87); Eosinophils % 4.6 % (0.00-10.9); Hematocrit 21.6 VOL% (42.0-52.0); Hemoglobin 7.2 GM/DL (14.0-18.0); Lymphocytes # 1.4 10*3/uL (1.4-4.0); Lymphocytes % 23.1 % (21.2-54.2); Mean Corpuscular HGB Conc 33.3 GM/DL (32-36); Mean Corpuscular Volume 91.9 FL (87-102); Mean Platelet Volume 9.3 FL (9.6-12.0); Monocytes # 0.5 10*3/uL (0.11-0.8); Monocytes % 9.1 % (1.7-12.7); Neutrophils % 62.4 % (38.7-73.9); Platelet Count 171 T/CUMM (130-400); Red Blood Count 2.35 MC/CUMM (3.8-5.5); Red Cell Distribution Width 14.6 % (9.3-17.3); White Blood Count 5.8 T/CUMM (4-12)
[2022-02-11 08:03] LABS: Calcium 9.6 MG/DL (8.5-10.1); Osmolality,Calculated 281.7 MOS/KG (273-304); Potassium 5.3 MMOL/L (3.5-5.1)
[2022-02-11] MEDS ORDERED: HEPARIN 1,000 UNIT/1 ML VIAL ONE (10:11)
[2022-02-11] MEDS ORDERED: hydrALAZINE 20 MG/1 ML VIAL IV ONE (12:02)
[2022-02-11] MEDS: NITROGLYCERIN SL 0.4 MG TABLET SL PRN ×3 (12:09→17:21)
[2022-02-11] MEDS: ONDANSETRON 4 MG/2 ML VIAL IV PRN (12:10)
[2022-02-11] MEDS ORDERED: MORPHINE 10 MG/1 ML VIAL ONE (12:24)
[2022-02-11] MEDS ORDERED: MORPHINE 2 MG/1 ML SYRINGE IV ONE (12:30)
[2022-02-11] MEDS: SODIUM ZIRCONIUM CYCLOSILICATE 10 GM PACK PO SCH ×3 (15:50→22:10)
[2022-02-11] MEDS: SEVELAMER CARBONATE 800 MG TABLET PO SCH ×2 (15:54→17:15)
[2022-02-11] MEDS: CLOPIDOGREL 75 MG TABLET PO SCH (17:16)
[2022-02-11] MEDS: PANTOPRAZOLE 40 MG TABLET PO SCH (17:16)
[2022-02-11] MEDS: TAMSULOSIN 0.4 MG CAPSULE PO SCH ×2 (17:16→22:10)
[2022-02-11] MEDS: ISOSORBIDE MONONITRATE 30 MG TABLET PO SCH (17:16)
[2022-02-11] MEDS: ASPIRIN EC 81 MG TABLET PO SCH (17:16)
[2022-02-11] MEDS: GABAPENTIN 400 MG CAPSULE PO SCH (17:52)
[2022-02-11] MEDS: ATORVASTATIN 40 MG TABLET PO SCH (22:10)
[2022-02-12 05:04] LABS: Basophils % 0.4 % (0.0-0.8); Eosinophils # 0.2 10*3/uL (0.0-0.87); Eosinophils % 3.3 % (0.00-10.9); Hematocrit 19.4 VOL% (42.0-52.0); Hemoglobin 6.5 GM/DL (14.0-18.0); Immature Granulocytes % 0.2 %; Immature Granulocytes Absolute 0.01 #; Lymphocytes # 1.1 10*3/uL (1.4-4.0); Lymphocytes % 23.5 % (21.2-54.2); Mean Corpuscular HGB Conc 33.5 GM/DL (32-36); Mean Corpuscular Volume 91.5 FL (87-102); Mean Platelet Volume 10.5 FL (9.6-12.0); Monocytes # 0.7 10*3/uL (0.11-0.8); Monocytes % 13.5 % (1.7-12.7); Neutrophils % 59.1 % (38.7-73.9); Platelet Count 116 T/CUMM (130-400); Red Blood Count 2.12 MC/CUMM (3.8-5.5); Red Cell Distribution Width 15.3 % (9.3-17.3); White Blood Count 4.8 T/CUMM (4-12)
[2022-02-12 05:22] LABS: Calcium 9.1 MG/DL (8.5-10.1); Osmolality,Calculated 275.4 MOS/KG (273-304); Potassium 5.2 MMOL/L (3.5-5.1)
[2022-02-12 08:16] LABS: Basophils % 0.6 % (0.0-0.8); Eosinophils # 0.2 10*3/uL (0.0-0.87); Eosinophils % 4.3 % (0.00-10.9); Hematocrit 20.8 VOL% (42.0-52.0); Hemoglobin 6.9 GM/DL (14.0-18.0); Immature Granulocytes % 0.4 %; Immature Granulocytes Absolute 0.02 #; Lymphocytes # 1.2 10*3/uL (1.4-4.0); Mean Corpuscular HGB Conc 33.2 GM/DL (32-36); Mean Platelet Volume 10.3 FL (9.6-12.0); Monocytes # 0.8 10*3/uL (0.11-0.8); Monocytes % 13.9 % (1.7-12.7); Neutrophils % 58.8 % (38.7-73.9); Platelet Count 123 T/CUMM (130-400); Red Blood Count 2.31 MC/CUMM (3.8-5.5); Red Cell Distribution Width 15.4 % (9.3-17.3); White Blood Count 5.4 T/CUMM (4-12)
[2022-02-12] MEDS ORDERED: SODIUM CHLORIDE 0.9% 1,000 ML IV PRN (08:31)
[2022-02-12] MEDS: SODIUM ZIRCONIUM CYCLOSILICATE 10 GM PACK PO SCH ×3 (08:37→18:13)
[2022-02-12] MEDS: CLOPIDOGREL 75 MG TABLET PO SCH (08:37)
[2022-02-12] MEDS: ASPIRIN EC 81 MG TABLET PO SCH (08:37)
[2022-02-12] MEDS: METOPROLOL SUCCINATE XL 100 MG TABLET PO SCH ×2 (08:38→10:04)
[2022-02-12] MEDS: PANTOPRAZOLE 40 MG TABLET PO SCH ×2 (08:38→20:07)
[2022-02-12] MEDS: TAMSULOSIN 0.4 MG CAPSULE PO SCH ×2 (08:38→20:07)
[2022-02-12] MEDS: ISOSORBIDE MONONITRATE 30 MG TABLET PO SCH (08:38)
[2022-02-12] MEDS: SEVELAMER CARBONATE 800 MG TABLET PO SCH ×4 (08:38→20:06)
[2022-02-12] MEDS: GABAPENTIN 400 MG CAPSULE PO SCH ×2 (10:04→10:06)
[2022-02-12 12:30] LABS: Urine Appearance Clear (Clear); Urine Color Light Yellow (Yellow); Urine pH 8.5 (4.5-8.0)
[2022-02-12 12:31] LABS: Bilirubin,Urine Negative (Negative); Blood, Urine Trace mg/dL (Negative); Glucose,Urine (UA) 100 mg/dL (Negative); Ketones,Urine Negative (Negative); Nitrite,Urine Negative (Negative); Protein,Urine 30 mg/dL (Negative); Urine Specific Gravity 1.015 (1.001-1.035); Urine Urobilinogen 0.2 eU/dL (<2.0)
[2022-02-12 12:39] LABS: RBC,Urine 1 /HPF (0-4); Squamous Epithelial Cell,Urine Occasional /HPF (0-10)
[2022-02-12] MEDS: POLYETHYLENE GLYCOL POWDER 17 GM PACK PO SCH ×2 (17:31→20:39)
[2022-02-12] MEDS: ATORVASTATIN 40 MG TABLET PO SCH (20:07)
[2022-02-12] MEDS: ONDANSETRON 4 MG/2 ML VIAL IV PRN (20:09)
[2022-02-13 05:47] LABS: Basophils # 0.1 10*3/uL (0.0-0.2); Eosinophils # 0.3 10*3/uL (0.0-0.87); Eosinophils % 6.4 % (0.00-10.9); Hematocrit 23.8 VOL% (42.0-52.0); Hemoglobin 7.9 GM/DL (14.0-18.0); Immature Granulocytes % 0.4 %; Immature Granulocytes Absolute 0.02 #; Lymphocytes # 1.6 10*3/uL (1.4-4.0); Mean Corpuscular HGB Conc 33.2 GM/DL (32-36); Mean Corpuscular Volume 91.2 FL (87-102); Mean Platelet Volume 10.1 FL (9.6-12.0); Monocytes # 0.8 10*3/uL (0.11-0.8); Monocytes % 16.1 % (1.7-12.7); Neutrophils % 46.1 % (38.7-73.9); Platelet Count 110 T/CUMM (130-400); Red Blood Count 2.61 MC/CUMM (3.8-5.5); White Blood Count 5.2 T/CUMM (4-12)
[2022-02-13 05:59] LABS: Calcium 8.9 MG/DL (8.5-10.1); Osmolality,Calculated 271.8 MOS/KG (273-304); Potassium 5.7 MMOL/L (3.5-5.1)
[2022-02-13 06:19] LABS: Eosinophils 9 % (0-10); Lymphocytes 36 % (20-55); Total Cells Counted 100
[2022-02-13 06:20] LABS: Microcytosis Slight
[2022-02-13 06:21] LABS: Platelet Estimate Decreased
[2022-02-13] MEDS: SEVELAMER CARBONATE 800 MG TABLET PO SCH ×3 (07:26→21:20)
[2022-02-13] MEDS ORDERED: SODIUM CHLORIDE 0.9% 500 ML IV SCH (08:08)
[2022-02-13] MEDS ORDERED: ETOMIDATE 20 MG/10 ML VIAL IV ONE (08:51)
[2022-02-13] MEDS ORDERED: LIDOCAINE 2% 5 ML VIAL ONE (08:51)
[2022-02-13] MEDS ORDERED: propofoL 200 MG/20 ML VIAL IV ONE (08:51)
[2022-02-13] MEDS: PANTOPRAZOLE 40 MG TABLET PO SCH ×2 (15:40→21:20)
[2022-02-13] MEDS: TAMSULOSIN 0.4 MG CAPSULE PO SCH ×2 (15:40→21:20)
[2022-02-13] MEDS: ISOSORBIDE MONONITRATE 30 MG TABLET PO SCH (15:41)
[2022-02-13] MEDS: METOPROLOL SUCCINATE XL 100 MG TABLET PO SCH (15:41)
[2022-02-13] MEDS: ASPIRIN EC 81 MG TABLET PO SCH (15:41)
[2022-02-13] MEDS: CLOPIDOGREL 75 MG TABLET PO SCH (15:42)
[2022-02-13] MEDS: SODIUM ZIRCONIUM CYCLOSILICATE 10 GM PACK PO SCH ×2 (15:42→16:15)
[2022-02-13] MEDS: POLYETHYLENE GLYCOL POWDER 17 GM PACK PO SCH ×2 (15:42→21:28)
[2022-02-13] MEDS: METOCLOPRAMIDE 10 MG/10 ML UDCUP PO SCH ×3 (15:46→21:21)
[2022-02-13] MEDS: ATORVASTATIN 40 MG TABLET PO SCH (21:20)
[2022-02-14 06:02] LABS: Basophils % 0.7 % (0.0-0.8); Eosinophils # 0.3 10*3/uL (0.0-0.87); Eosinophils % 5.4 % (0.00-10.9); Hemoglobin 9.2 GM/DL (14.0-18.0); Immature Granulocytes % 0.5 %; Immature Granulocytes Absolute 0.03 #; Lymphocytes # 1.5 10*3/uL (1.4-4.0); Lymphocytes % 25.8 % (21.2-54.2); Mean Corpuscular HGB Conc 34.1 GM/DL (32-36); Mean Corpuscular Volume 89.7 FL (87-102); Mean Platelet Volume 10.2 FL (9.6-12.0); Monocytes # 0.8 10*3/uL (0.11-0.8); Monocytes % 13.5 % (1.7-12.7); Neutrophils % 54.1 % (38.7-73.9); Platelet Count 135 T/CUMM (130-400); Red Blood Count 3.01 MC/CUMM (3.8-5.5); Red Cell Distribution Width 14.6 % (9.3-17.3)
[2022-02-14 06:16] LABS: Osmolality,Calculated 272.2 MOS/KG (273-304); Potassium 5.4 MMOL/L (3.5-5.1)
[2022-02-14 08:31] VITALS: BP 175/91
[2022-02-14] MEDS: PANTOPRAZOLE 40 MG TABLET PO SCH (09:33)
[2022-02-14] MEDS: SODIUM ZIRCONIUM CYCLOSILICATE 10 GM PACK PO SCH (09:34)
[2022-02-14] MEDS: METOPROLOL SUCCINATE XL 100 MG TABLET PO SCH (09:34)
[2022-02-14] MEDS: POLYETHYLENE GLYCOL POWDER 17 GM PACK PO SCH (09:34)
[2022-02-14] MEDS: CLOPIDOGREL 75 MG TABLET PO SCH (09:34)
[2022-02-14] MEDS: ISOSORBIDE MONONITRATE 30 MG TABLET PO SCH (09:34)
[2022-02-14] MEDS: METOCLOPRAMIDE 10 MG/10 ML UDCUP PO SCH (09:34)
[2022-02-14] MEDS: ASPIRIN EC 81 MG TABLET PO SCH (09:34)
[2022-02-14] MEDS: SEVELAMER CARBONATE 800 MG TABLET PO SCH (09:34)
[2022-02-14] MEDS: TAMSULOSIN 0.4 MG CAPSULE PO SCH (09:34)
== END 2022-02-14 13:40 | disposition home or self-care (01) | DRG 252 ==
LOC: N.EDINP 02:27 → N.ED 02:27 → SUATTDRO 05:12 → N.TELES 05:44 → SUATTDRO 02-10 16:04
PROVIDERS: ADMIT Internal Medicine Geriatric Medicine; ATTEND Internal Medicine

== ENCOUNTER 2022-05-21 19:57 | Inpatient (IN) ==
[2022-05-21 20:39] LABS: Basophils % 0.3 % (0.0-0.8); Eosinophils % 0.1 % (0.00-10.9); Hematocrit 32.8 VOL% (42.0-52.0); Hemoglobin 11.2 GM/DL (14.0-18.0); Immature Granulocytes % 0.4 %; Immature Granulocytes Absolute 0.03 #; Lymphocytes # 1.5 10*3/uL (1.4-4.0); Lymphocytes % 20.6 % (21.2-54.2); Mean Corpuscular HGB Conc 34.1 GM/DL (32-36); Mean Corpuscular Volume 93.2 FL (87-102); Mean Platelet Volume 9.3 FL (9.6-12.0); Monocytes # 0.2 10*3/uL (0.11-0.8); Monocytes % 2.1 % (1.7-12.7); Neutrophils % 76.5 % (38.7-73.9); Platelet Count 222 T/CUMM (130-400); Red Blood Count 3.52 MC/CUMM (3.8-5.5); Red Cell Distribution Width 15.9 % (9.3-17.3); White Blood Count 7.2 T/CUMM (4-12)
[2022-05-21 21:07] LABS: Partial Thromboplastin Time 29.8 SECS (23.7-32.9)
[2022-05-21 21:09] LABS: Albumin 4.5 G/DL (3.4-5.0); Bilirubin,Total 0.5 MG/DL (0.20-1.00); Calcium 9.7 MG/DL (8.5-10.1); Osmolality,Calculated 273.7 MOS/KG (273-304); Total Protein 9.6 G/DL (6.4-8.2)
[2022-05-21 21:14] LABS: Potassium 7.6 MMOL/L (3.5-5.1)
[2022-05-21] MEDS ORDERED: INSULIN REGULAR 10 UNIT, CALCIUM GLUCONATE 1,000 MG in DEXTROSE 10% 250 ML IV ONE (21:15)
[2022-05-21] MEDS ORDERED: ONDANSETRON 4 MG/2 ML VIAL IV STA (21:15)
[2022-05-21] MEDS ORDERED: MORPHINE 2 MG/1 ML SYRINGE IV STA (21:16)
[2022-05-21] MEDS ORDERED: SODIUM POLYSTYRENE SULFATE 15 GM/60 ML BOTTLE PO STA (21:16)
[2022-05-21] MEDS ORDERED: ACETAMINOPHEN 325 MG TABLET PO PRN (22:07)
[2022-05-21] MEDS ORDERED: MORPHINE 2 MG/1 ML SYRINGE IV PRN (22:07)
[2022-05-21] MEDS ORDERED: ONDANSETRON 4 MG/2 ML VIAL IV PRN (22:07)
[2022-05-21] MEDS ORDERED: METHOCARBAMOL 750 MG TABLET PO PRN (22:22)
[2022-05-21] MEDS ORDERED: hydrALAZINE 20 MG/1 ML VIAL IV PRN (22:32)
[2022-05-22 01:23] LABS: Basophils % 0.1 % (0.0-0.8); Hematocrit 32.7 VOL% (42.0-52.0); Hemoglobin 11.2 GM/DL (14.0-18.0); Immature Granulocytes % 0.6 %; Immature Granulocytes Absolute 0.05 #; Lymphocytes # 1.7 10*3/uL (1.4-4.0); Lymphocytes % 19.3 % (21.2-54.2); Mean Corpuscular HGB Conc 34.3 GM/DL (32-36); Mean Corpuscular Volume 90.6 FL (87-102); Mean Platelet Volume 9.2 FL (9.6-12.0); Monocytes # 0.2 10*3/uL (0.11-0.8); Monocytes % 1.9 % (1.7-12.7); Neutrophils % 78.1 % (38.7-73.9); Platelet Count 213 T/CUMM (130-400); Red Blood Count 3.61 MC/CUMM (3.8-5.5); Red Cell Distribution Width 15.5 % (9.3-17.3); White Blood Count 8.8 T/CUMM (4-12)
[2022-05-22 01:46] LABS: Albumin 4.6 G/DL (3.4-5.0); Bilirubin,Total 0.6 MG/DL (0.20-1.00); Calcium 10.5 MG/DL (8.5-10.1); Osmolality,Calculated 270.1 MOS/KG (273-304); Total Protein 9.4 G/DL (6.4-8.2)
[2022-05-22 01:50] LABS: Potassium 7.9 MMOL/L (3.5-5.1)
[2022-05-22] MEDS ORDERED: SODIUM POLYSTYRENE SULFATE 15 GM/60 ML BOTTLE PO STA ×2 (02:25→09:03)
[2022-05-22] MEDS ORDERED: INSULIN REGULAR 10 UNIT, CALCIUM GLUCONATE 1,000 MG in DEXTROSE 10% 250 ML IV ONE (02:30)
[2022-05-22 07:55] LABS: Albumin 4.2 G/DL (3.4-5.0); Bilirubin,Total 0.6 MG/DL (0.20-1.00); Calcium 10.3 MG/DL (8.5-10.1); Osmolality,Calculated 272.1 MOS/KG (273-304); Total Protein 8.9 G/DL (6.4-8.2)
[2022-05-22 08:01] LABS: Potassium 7.7 MMOL/L (3.5-5.1)
[2022-05-22] MEDS: METOCLOPRAMIDE 5 MG TABLET PO SCH ×4 (09:04→20:45)
[2022-05-22] MEDS: SEVELAMER CARBONATE 800 MG TABLET PO SCH ×3 (09:04→20:44)
[2022-05-22] MEDS: ISOSORBIDE MONONITRATE 30 MG TABLET PO SCH (09:04)
[2022-05-22] MEDS: TAMSULOSIN 0.4 MG CAPSULE PO SCH ×2 (09:05→20:45)
[2022-05-22] MEDS: ASPIRIN EC 81 MG TABLET PO SCH (09:05)
[2022-05-22] MEDS: CLOPIDOGREL 75 MG TABLET PO SCH (09:05)
[2022-05-22] MEDS: METOPROLOL SUCCINATE XL 100 MG TABLET PO SCH (09:05)
[2022-05-22] MEDS: PANTOPRAZOLE 40 MG TABLET PO SCH (09:05)
[2022-05-22] MEDS: HEPARIN 5,000 UNIT/1 ML VIAL SUBCUT SCH ×2 (09:12→20:44)
[2022-05-22] MEDS ORDERED: ATORVASTATIN 40 MG TABLET PO SCH (21:00)
[2022-05-23 05:13] LABS: Basophils % 0.2 % (0.0-0.8); Eosinophils % 0.5 % (0.00-10.9); Hematocrit 29.5 VOL% (42.0-52.0); Immature Granulocytes % 0.4 %; Immature Granulocytes Absolute 0.03 #; Lymphocytes # 2.5 10*3/uL (1.4-4.0); Lymphocytes % 30.2 % (21.2-54.2); Mean Corpuscular HGB Conc 33.9 GM/DL (32-36); Mean Corpuscular Volume 93.4 FL (87-102); Mean Platelet Volume 9.7 FL (9.6-12.0); Monocytes # 0.7 10*3/uL (0.11-0.8); Monocytes % 8.8 % (1.7-12.7); Neutrophils % 59.9 % (38.7-73.9); Platelet Count 176 T/CUMM (130-400); Red Blood Count 3.16 MC/CUMM (3.8-5.5); Red Cell Distribution Width 15.6 % (9.3-17.3); White Blood Count 8.1 T/CUMM (4-12)
[2022-05-23 05:39] LABS: Albumin 3.7 G/DL (3.4-5.0); Bilirubin,Total 0.4 MG/DL (0.20-1.00); Calcium 9.2 MG/DL (8.5-10.1); Osmolality,Calculated 277.5 MOS/KG (273-304); Potassium 4.8 MMOL/L (3.5-5.1); Total Protein 7.8 G/DL (6.4-8.2)
[2022-05-23] MEDS: SEVELAMER CARBONATE 800 MG TABLET PO SCH (10:31)
[2022-05-23] MEDS: METOPROLOL SUCCINATE XL 100 MG TABLET PO SCH (10:31)
[2022-05-23] MEDS: TAMSULOSIN 0.4 MG CAPSULE PO SCH (10:31)
[2022-05-23] MEDS: ASPIRIN EC 81 MG TABLET PO SCH (10:32)
[2022-05-23] MEDS: CLOPIDOGREL 75 MG TABLET PO SCH (10:32)
[2022-05-23] MEDS: ISOSORBIDE MONONITRATE 30 MG TABLET PO SCH (10:32)
[2022-05-23] MEDS: PANTOPRAZOLE 40 MG TABLET PO SCH (10:32)
[2022-05-23] MEDS: METOCLOPRAMIDE 5 MG TABLET PO SCH ×2 (10:32→13:58)
[2022-05-23] MEDS: HEPARIN 5,000 UNIT/1 ML VIAL SUBCUT SCH (10:33)
[2022-05-23 14:22] VITALS: BP 127/85
== END 2022-05-23 15:39 | disposition home or self-care (01) | DRG 640 ==
LOC: N.ED 19:57 → N.TELEN 22:07
PROVIDERS: ADMIT Family Medicine; ATTEND Family Medicine

== ENCOUNTER 2022-06-09 19:07 | Observation (INO) ==
[2022-06-09] MEDS ORDERED: ONDANSETRON 4 MG/2 ML VIAL IV STA (19:40)
[2022-06-09] MEDS ORDERED: MORPHINE 2 MG/1 ML SYRINGE IV STA (19:40)
[2022-06-09] MEDS ORDERED: NITROGLYCERIN SL 0.4 MG TABLET SL STA (19:48)
[2022-06-09] MEDS ORDERED: ASPIRIN CHEW 81 MG TABLET PO STA (19:48)
[2022-06-09 19:58] LABS: Basophils % 0.4 % (0.0-0.8); Eosinophils # 0.1 10*3/uL (0.0-0.87); Eosinophils % 1.9 % (0.00-10.9); Hematocrit 29.7 VOL% (42.0-52.0); Hemoglobin 10.4 GM/DL (14.0-18.0); Immature Granulocytes % 0.3 %; Immature Granulocytes Absolute 0.02 #; Lymphocytes # 2.6 10*3/uL (1.4-4.0); Lymphocytes % 37.7 % (21.2-54.2); Mean Corpuscular Volume 92.5 FL (87-102); Mean Platelet Volume 9.2 FL (9.6-12.0); Monocytes # 0.7 10*3/uL (0.11-0.8); Monocytes % 9.7 % (1.7-12.7); Platelet Count 210 T/CUMM (130-400); Red Blood Count 3.21 MC/CUMM (3.8-5.5); Red Cell Distribution Width 16.2 % (9.3-17.3); White Blood Count 6.9 T/CUMM (4-12)
[2022-06-09 20:10] LABS: INR 0.9; PT Patient Result 10.1 SECS (10.1-12.1); Partial Thromboplastin Time 27.1 SECS (23.7-32.9)
[2022-06-09 20:20] LABS: Albumin 4.2 G/DL (3.4-5.0); Bilirubin,Total 0.4 MG/DL (0.20-1.00); Calcium 9.5 MG/DL (8.5-10.1); Osmolality,Calculated 280.2 MOS/KG (273-304); Potassium 5.4 MMOL/L (3.5-5.1); Total Protein 8.5 G/DL (6.4-8.2)
[2022-06-09] MEDS ORDERED: GLUCAGON 1 MG VIAL IM PRN (20:56)
[2022-06-09] MEDS ORDERED: ONDANSETRON 4 MG/2 ML VIAL IV PRN (20:57)
[2022-06-09] MEDS ORDERED: NITROGLYCERIN SL 0.4 MG TABLET SL PRN (20:57)
[2022-06-09] MEDS ORDERED: DEXTROSE 10% 250 ML BAG IV PRN (21:46)
[2022-06-09] MEDS ORDERED: SODIUM ZIRCONIUM CYCLOSILICATE 10 GM PACK PO STA (22:01)
[2022-06-09] MEDS: TAMSULOSIN 0.4 MG CAPSULE PO SCH (22:47)
[2022-06-09] MEDS: ATORVASTATIN 40 MG TABLET PO SCH (22:47)
[2022-06-09] MEDS: HEPARIN 5,000 UNIT/1 ML VIAL SUBCUT SCH (22:56)
[2022-06-09] MEDS: METOCLOPRAMIDE 5 MG TABLET PO SCH (23:03)
[2022-06-10 05:09] LABS: Basophils % 0.4 % (0.0-0.8); Eosinophils # 0.1 10*3/uL (0.0-0.87); Eosinophils % 2.2 % (0.00-10.9); Hematocrit 26.1 VOL% (42.0-52.0); Hemoglobin 8.9 GM/DL (14.0-18.0); Immature Granulocytes % 0.4 %; Immature Granulocytes Absolute 0.02 #; Lymphocytes % 38.8 % (21.2-54.2); Mean Corpuscular HGB Conc 34.1 GM/DL (32-36); Mean Corpuscular Volume 93.2 FL (87-102); Mean Platelet Volume 9.2 FL (9.6-12.0); Monocytes # 0.5 10*3/uL (0.11-0.8); Monocytes % 10.8 % (1.7-12.7); Neutrophils % 47.4 % (38.7-73.9); Platelet Count 163 T/CUMM (130-400); Red Cell Distribution Width 16.2 % (9.3-17.3)
[2022-06-10 05:29] LABS: VLDL Cholesterol 71.2 MG/DL
[2022-06-10 05:33] LABS: PT Patient Result 10.8 SECS (10.1-12.1); Partial Thromboplastin Time 29.4 SECS (23.7-32.9)
[2022-06-10 07:38] LABS: Calcium 8.7 MG/DL (8.5-10.1); Osmolality,Calculated 279.4 MOS/KG (273-304); Potassium 5.3 MMOL/L (3.5-5.1)
[2022-06-10] MEDS ORDERED: MAGNESIUM SULF RIDER 2 GM/50 ML PREMIX IV PRN (07:43)
[2022-06-10] MEDS ORDERED: POTASSIUM CHLORIDE RIDER 10 MEQ/100 ML PREMIX IV PRN (07:43)
[2022-06-10] MEDS ORDERED: diphenhydrAMINE CAP 50 MG CAPSULE PO ONE (07:43)
[2022-06-10] MEDS ORDERED: DIAZEPAM 5 MG TABLET PO ONE (07:43)
[2022-06-10] MEDS ORDERED: ISOSORBIDE MONONITRATE 30 MG TABLET PO SCH (09:00)
[2022-06-10] MEDS ORDERED: ASPIRIN EC 325 MG TABLET PO SCH (09:00)
[2022-06-10] MEDS ORDERED: CLOPIDOGREL 75 MG TABLET PO SCH (09:00)
[2022-06-10] MEDS: METOCLOPRAMIDE 5 MG TABLET PO SCH ×4 (09:07→20:55)
[2022-06-10] MEDS: ASPIRIN EC 81 MG TABLET PO SCH (09:07)
[2022-06-10] MEDS: TAMSULOSIN 0.4 MG CAPSULE PO SCH ×2 (09:07→20:55)
[2022-06-10] MEDS: HEPARIN 5,000 UNIT/1 ML VIAL SUBCUT SCH ×2 (09:08→20:56)
[2022-06-10] MEDS: METOPROLOL SUCCINATE XL 100 MG TABLET PO SCH (09:09)
[2022-06-10] MEDS: PANTOPRAZOLE 40 MG TABLET PO SCH (09:09)
[2022-06-10] MEDS: SEVELAMER CARBONATE 800 MG TABLET PO SCH ×3 (09:09→20:54)
[2022-06-10] MEDS ORDERED: EPOETIN ALFA-EPBX 4,000 UNIT/ML VIAL IV PRN (12:55)
[2022-06-10] MEDS ORDERED: HEPARIN/NACL 0.9% 2 UNITS/ML 2,000 UNIT/1,000 ML BAG IV ONE (14:20)
[2022-06-10] MEDS ORDERED: VERAPAMIL 5 MG/2 ML VIAL ONE (14:46)
[2022-06-10] MEDS ORDERED: NITROGLYCERIN DRIP 50 MG/250 ML BOTTLE IV ONE (14:46)
[2022-06-10] MEDS ORDERED: MIDAZOLAM 2 MG/2 ML VIAL ONE ×2 (14:49→15:08)
[2022-06-10] MEDS ORDERED: fentaNYL 100 MCG/2 ML VIAL ONE (14:49)
[2022-06-10] MEDS: ATORVASTATIN 40 MG TABLET PO SCH (20:54)
[2022-06-10] MEDS: MORPHINE 2 MG/1 ML SYRINGE IV PRN (22:26)
[2022-06-11 01:53] LABS: Basophils % 0.6 % (0.0-0.8); Eosinophils # 0.1 10*3/uL (0.0-0.87); Eosinophils % 1.7 % (0.00-10.9); Hematocrit 28.5 VOL% (42.0-52.0); Hemoglobin 10.1 GM/DL (14.0-18.0); Lymphocytes # 1.5 10*3/uL (1.4-4.0); Lymphocytes % 27.8 % (21.2-54.2); Mean Corpuscular HGB Conc 35.4 GM/DL (32-36); Mean Corpuscular Volume 93.1 FL (87-102); Monocytes # 0.7 10*3/uL (0.11-0.8); Monocytes % 12.3 % (1.7-12.7); Neutrophils % 57.6 % (38.7-73.9); Platelet Count 190 T/CUMM (130-400); Red Blood Count 3.06 MC/CUMM (3.8-5.5); Red Cell Distribution Width 16.3 % (9.3-17.3); White Blood Count 5.3 T/CUMM (4-12)
[2022-06-11 02:13] LABS: Calcium 8.5 MG/DL (8.5-10.1); Osmolality,Calculated 271.7 MOS/KG (273-304); Potassium 5.7 MMOL/L (3.5-5.1)
[2022-06-11] MEDS ORDERED: ISOSORBIDE MONONITRATE 60 MG TABLET PO SCH (09:00)
[2022-06-11] MEDS: PANTOPRAZOLE 40 MG TABLET PO SCH (09:10)
[2022-06-11] MEDS: METOPROLOL SUCCINATE XL 100 MG TABLET PO SCH (09:10)
[2022-06-11] MEDS: TAMSULOSIN 0.4 MG CAPSULE PO SCH (09:10)
[2022-06-11] MEDS: ASPIRIN EC 81 MG TABLET PO SCH (09:11)
[2022-06-11] MEDS: HEPARIN 5,000 UNIT/1 ML VIAL SUBCUT SCH ×2 (09:11→09:32)
[2022-06-11] MEDS: MORPHINE 2 MG/1 ML SYRINGE IV PRN (09:11)
[2022-06-11] MEDS: METOCLOPRAMIDE 5 MG TABLET PO SCH ×2 (09:11→12:25)
[2022-06-11] MEDS: SEVELAMER CARBONATE 800 MG TABLET PO SCH (09:11)
[2022-06-11 12:25] VITALS: BP 149/89
== END 2022-06-11 12:53 | disposition home or self-care (01) ==
LOC: N.EDINP 19:07 → N.ED 19:07 → N.2W 23:04
PROVIDERS: ADMIT Internal Medicine; ATTEND Internal Medicine

== ENCOUNTER 2022-06-19 01:16 | Inpatient (IN) ==
[2022-06-19] MEDS ORDERED: NITROGLYCERIN 2% OINT 1 INCH/GM PACK TOP STA (01:43)
[2022-06-19] MEDS ORDERED: ASPIRIN 325 MG TABLET PO STA (01:43)
[2022-06-19] MEDS ORDERED: ONDANSETRON 4 MG/2 ML VIAL IV STA (01:43)
[2022-06-19] MEDS ORDERED: MORPHINE 2 MG/1 ML SYRINGE IV STA (01:43)
[2022-06-19] MEDS ORDERED: MORPHINE 2 MG/1 ML SYRINGE ONE (01:44)
[2022-06-19] MEDS ORDERED: ONDANSETRON 4 MG/2 ML VIAL ONE (01:44)
[2022-06-19] MEDS ORDERED: ASPIRIN 325 MG TABLET ONE (01:45)
[2022-06-19] MEDS ORDERED: NITROGLYCERIN 2% OINT 1 INCH/GM PACK TOP ONE (01:45)
[2022-06-19 01:52] LABS: Basophils % 0.2 % (0.0-0.8); Eosinophils % 0.1 % (0.00-10.9); Hemoglobin 10.2 GM/DL (14.0-18.0); Immature Granulocytes % 0.6 %; Immature Granulocytes Absolute 0.07 #; Lymphocytes # 1.7 10*3/uL (1.4-4.0); Lymphocytes % 14.1 % (21.2-54.2); Mean Corpuscular Volume 93.5 FL (87-102); Monocytes # 0.3 10*3/uL (0.11-0.8); Monocytes % 2.1 % (1.7-12.7); Neutrophils % 82.9 % (38.7-73.9); Platelet Count 270 T/CUMM (130-400); Red Blood Count 3.21 MC/CUMM (3.8-5.5); Red Cell Distribution Width 16.3 % (9.3-17.3); White Blood Count 11.9 T/CUMM (4-12)
[2022-06-19 02:18] LABS: Albumin 3.7 G/DL (3.4-5.0); Bilirubin,Total 0.4 MG/DL (0.20-1.00); Calcium 9.9 MG/DL (8.5-10.1); Osmolality,Calculated 273.9 MOS/KG (273-304); Total Protein 8.8 G/DL (6.4-8.2)
[2022-06-19 02:20] LABS: Potassium 7.3 MMOL/L (3.5-5.1)
[2022-06-19] MEDS ORDERED: INSULIN REGULAR 10 UNIT, CALCIUM GLUCONATE 1,000 MG in DEXTROSE 10% 250 ML IV ONE (02:24)
[2022-06-19] MEDS ORDERED: SODIUM POLYSTYRENE SULFATE 15 GM/60 ML BOTTLE PO STA (02:24)
[2022-06-19] MEDS ORDERED: MORPHINE 2 MG/1 ML SYRINGE IV PRN (02:35)
[2022-06-19] MEDS ORDERED: ONDANSETRON 4 MG/2 ML VIAL IV PRN (02:35)
[2022-06-19] MEDS ORDERED: hydrALAZINE 20 MG/1 ML VIAL IV PRN (03:19)
[2022-06-19] MEDS: METOCLOPRAMIDE 10 MG TABLET PO SCH ×4 (08:10→21:27)
[2022-06-19] MEDS: SEVELAMER CARBONATE 800 MG TABLET PO SCH ×3 (08:34→17:32)
[2022-06-19] MEDS ORDERED: PANTOPRAZOLE 40 MG TABLET PO SCH (09:00)
[2022-06-19 09:15] LABS: Albumin 3.5 G/DL (3.4-5.0); Bilirubin,Total 0.4 MG/DL (0.20-1.00); Calcium 9.8 MG/DL (8.5-10.1); Osmolality,Calculated 275.1 MOS/KG (273-304); Total Protein 8.5 G/DL (6.4-8.2)
[2022-06-19 09:17] LABS: Potassium 7.3 MMOL/L (3.5-5.1)
[2022-06-19] MEDS: ISOSORBIDE MONONITRATE 30 MG TABLET PO SCH (09:40)
[2022-06-19] MEDS: METOPROLOL SUCCINATE XL 100 MG TABLET PO SCH (09:40)
[2022-06-19] MEDS: ASPIRIN EC 81 MG TABLET PO SCH (09:40)
[2022-06-19 09:46] LABS: Basophils % 0.1 % (0.0-0.8); Hematocrit 29.8 VOL% (42.0-52.0); Hemoglobin 10.1 GM/DL (14.0-18.0); Immature Granulocytes % 0.4 %; Immature Granulocytes Absolute 0.06 #; Lymphocytes # 1.7 10*3/uL (1.4-4.0); Lymphocytes % 12.6 % (21.2-54.2); Mean Corpuscular HGB Conc 33.9 GM/DL (32-36); Mean Corpuscular Volume 93.7 FL (87-102); Mean Platelet Volume 9.1 FL (9.6-12.0); Monocytes # 0.6 10*3/uL (0.11-0.8); Monocytes % 4.1 % (1.7-12.7); Neutrophils % 82.8 % (38.7-73.9); Platelet Count 277 T/CUMM (130-400); Red Blood Count 3.18 MC/CUMM (3.8-5.5); Red Cell Distribution Width 16.3 % (9.3-17.3); White Blood Count 13.8 T/CUMM (4-12)
[2022-06-19] MEDS: TAMSULOSIN 0.4 MG CAPSULE PO SCH ×2 (16:20→21:27)
[2022-06-19] MEDS: predniSONE 5 MG TABLET PO SCH (16:23)
[2022-06-19] MEDS: PANTOPRAZOLE 40 MG TABLET PO SCH ×2 (16:24→21:28)
[2022-06-19] MEDS: DOXYCYCLINE HYCLATE 100 MG CAPSULE PO SCH ×2 (16:24→21:27)
[2022-06-19] MEDS: SODIUM ZIRCONIUM CYCLOSILICATE 10 GM PACK PO SCH (16:25)
[2022-06-19] MEDS: IPRATROPIUM 500 MCG/2.5 ML NEB RESP TX SCH (19:58)
[2022-06-19] MEDS ORDERED: ATORVASTATIN 40 MG TABLET PO SCH (21:00)
[2022-06-20 05:39] LABS: Basophils % 0.3 % (0.0-0.8); Eosinophils # 0.1 10*3/uL (0.0-0.87); Hematocrit 30.5 VOL% (42.0-52.0); Hemoglobin 10.2 GM/DL (14.0-18.0); Immature Granulocytes % 0.4 %; Immature Granulocytes Absolute 0.04 #; Lymphocytes # 2.6 10*3/uL (1.4-4.0); Lymphocytes % 27.1 % (21.2-54.2); Mean Corpuscular HGB Conc 33.4 GM/DL (32-36); Mean Corpuscular Volume 95.6 FL (87-102); Mean Platelet Volume 8.9 FL (9.6-12.0); Monocytes # 0.9 10*3/uL (0.11-0.8); Monocytes % 9.6 % (1.7-12.7); Neutrophils % 61.6 % (38.7-73.9); Platelet Count 260 T/CUMM (130-400); Red Blood Count 3.19 MC/CUMM (3.8-5.5); Red Cell Distribution Width 16.3 % (9.3-17.3); White Blood Count 9.5 T/CUMM (4-12)
[2022-06-20 06:00] LABS: Calcium 9.2 MG/DL (8.5-10.1); Osmolality,Calculated 279.2 MOS/KG (273-304)
[2022-06-20] MEDS: IPRATROPIUM 500 MCG/2.5 ML NEB RESP TX SCH (07:04)
[2022-06-20] MEDS: SODIUM ZIRCONIUM CYCLOSILICATE 10 GM PACK PO SCH (09:02)
[2022-06-20] MEDS: predniSONE 5 MG TABLET PO SCH (09:02)
[2022-06-20] MEDS: PANTOPRAZOLE 40 MG TABLET PO SCH (09:03)
[2022-06-20] MEDS: ISOSORBIDE MONONITRATE 30 MG TABLET PO SCH (09:03)
[2022-06-20] MEDS: METOPROLOL SUCCINATE XL 100 MG TABLET PO SCH (09:03)
[2022-06-20] MEDS: DOXYCYCLINE HYCLATE 100 MG CAPSULE PO SCH (09:03)
[2022-06-20] MEDS: TAMSULOSIN 0.4 MG CAPSULE PO SCH (09:03)
[2022-06-20] MEDS: ASPIRIN EC 81 MG TABLET PO SCH (09:04)
[2022-06-20] MEDS: METOCLOPRAMIDE 10 MG TABLET PO SCH ×2 (09:09→11:47)
[2022-06-20] MEDS: SEVELAMER CARBONATE 800 MG TABLET PO SCH ×2 (09:12→11:47)
[2022-06-20 16:49] VITALS: BP 129/90
== END 2022-06-20 14:35 | disposition home or self-care (01) | DRG 640 ==
LOC: N.ED 01:16 → N.EDINP 02:35 → N.TELEN 16:28
PROVIDERS: ADMIT Emergency Medicine; ATTEND Emergency Medicine